=== PATIENT | male | born 1985 | race Caucasian/White ===

== ENCOUNTER 2018-05-13 11:01 | Emergency (ER) | payer MEDICAID ==
--- NOTE | 2018-05-13 11:17 | EDM.PDOC ---
ED HPI GENERAL MEDICAL PROBLEM - General Chief Complaint: Skin Complaint Stated Complaint: BUG BITE Time Seen by Provider: 05/13/18 11:14 Source of Information: Reports: Patient, Old Records, RN, RN Notes Reviewed History Limitations: Reports: No Limitations - History of Present Illness INITIAL COMMENTS - FREE TEXT/NARRATIVE: Pt presents with c/o infection to right arm. He states he believes he was bit on the right upper arm by an insect or flying bug of some type about 3 days ago. Initially it just looked like a little red/pink bug bite and itched. One day after the bite he noticed a reddish area of about "3 inches" diameter around the bite, which he assumed was just a local reaction not unlike what he has experienced in the past from bug bites. Later yesterday evening the right arm became tender, he felt feverish and then chilled, and the skin of the right arm became red and felt hot. Today the redness has spread from the proximal upper arm, to the wrist. He denies fever today. Denies N/V, headache, neck pain or stiffness, or joint pain/swelling. Onset: Gradual Duration: Day(s): (3-4), Constant, Getting Worse Location: Reports: Upper Extremity, Right Quality: Reports: Ache, Burning Severity: Severe Improves with: Reports: None Worsens with: Reports: None Associated Symptoms: Reports: No Other Symptoms Right Arm Pain Score (Numeric/FACES): 4 - Related Data Allergies Allergy/AdvReac Type Severity Reaction Status Date / Time peanut Allergy Anaphylactic Verified 12/30/15 09:38 Shock nuts Allergy Anaphylactic Uncoded 12/30/15 09:38 Shock Home Meds: Home Meds . [No Known Home Meds] 01/19/14 [History] Past Medical History - Past Health History Medical/Surgical History: Denies Medical/Surgical History HEENT History: Reports: Impaired Vision Other HEENT History: Throat swells from nuts. Cardiovascular History: Reports: None Respiratory History: Reports: None Gastrointestinal History: Reports: None Genitourinary History: Reports: STD Musculoskeletal History: Reports: Osteoarthritis Other Musculoskeletal History: arthritis of some kind Neurological History: Reports: Concussion, Head Trauma Psychiatric History: Reports: Addiction (recovering methamphetamine addict), Anxiety, Panic Attack Endocrine/Metabolic History: Reports: Obesity/BMI 30+ Hematologic History: Reports: None Immunologic History: Reports: None Oncologic (Cancer) History: Reports: None Dermatologic History: Reports: None - Infectious Disease History Infectious Disease History: Reports: Chicken Pox - Past Surgical History Head Surgeries/Procedures: Reports: None Social & Family History - Family History Family Medical History: Noncontributory - Caffeine Use Caffeine Use: Reports: Coffee, Energy Drinks, Soda - Recreational Drug Use Recreational Drug Use: Yes Drug Use in Last 12 Months: No Recreational Drug Type: Reports: Methamphetamine Recreational Drug Use Frequency: Not Used In Over 1 Year - Living Situation & Occupation Living situation: Reports: Single, Alone Occupation: Employed ED ROS GENERAL - Review of Systems Review Of Systems: ROS reveals no pertinent complaints other than HPI. ED EXAM, SKIN/RASH Exam: See Below Exam Limited By: No Limitations General Appearance: Alert, WD/WN, No Apparent Distress, Obese Throat/Mouth: Normal Voice, No Airway Compromise Head: Atraumatic, Normocephalic Neck: Normal Inspection Respiratory/Chest: No Respiratory Distress Cardiovascular: Regular Rate, Rhythm Back Exam: Normal Inspection Extremities: Normal Range of Motion, Normal Capillary Refill, Arm Pain (Rt mid lateral upper arm with 1.5cm excoriated and weeping area where pt states he was bit by insect), Increased Warmth (Rt arm), Redness (erythema w/tenderness and increased warmth at Rt ant/lat/medial upper arm, & dorsal forearm to the wrist) . No: Joint Swelling Neurological: Alert, Oriented, No Motor/Sensory Deficits Psychiatric: Normal Mood Course - Vital Signs Last Recorded V/S: Last Vital Signs Temp 37.2 C 05/13/18 11:09 Pulse 96 05/13/18 11:09 Resp 20 05/13/18 11:09 BP 147/94 H 05/13/18 11:09 Pulse Ox 98 05/13/18 11:09 - Orders/Labs/Meds Orders: Active Orders 24 hr Category Date Time Status Peripheral IV Care [RC] . DIRECTED Care 05/13/18 11:26 Ordered CBC WITH AUTO DIFF [HEME] Stat Lab 05/13/18 11:25 Ordered COMPREHENSIVE METABOLIC PN,CMP [CHEM] Stat Lab 05/13/18 11:25 Ordered CRP [C-REACTIVE PROTEIN] [CHEM] Stat Lab 05/13/18 11:25 Ordered CULTURE BLOOD [BC] Stat Lab 05/13/18 11:26 Ordered CULTURE BLOOD [BC] Stat Lab 05/13/18 11:26 Ordered LACTIC ACID [CHEM] Stat Lab 05/13/18 11:25 Ordered Sodium Chloride 0.9% [Saline Flush] Med 05/13/18 11:25 Ordered 10 ml FLUSH ASDIRECTED PRN Vancomycin Med 05/13/18 11:30 Ordered 1,734.99 mg IV Q12H diphenhydrAMINE [Benadryl] Med 05/13/18 11:26 Once 25 mg IVPUSH ONETIME ONE Blood Culture x2 Reflex Set [OM.PC] Stat Oth 05/13/18 11:25 Ordered Peripheral IV Insertion Adult [OM.PC] Stat Oth 05/13/18 11:25 Ordered Medication Orders Diphenhydramine HCl (Benadryl) 25 mg IVPUSH ONETIME ONE Stop: 05/13/18 11:27 Sodium Chloride (Saline Flush) 10 ml FLUSH ASDIRECTED PRN PRN Reason: Keep Vein Open Vancomycin HCl (Vancomycin) 1,734.99 mg 15 mg/kg (1734.99 mg) IV Q12H [facility] Meds: Medications Generic Name Dose Route Start Last Admin Trade Name Freq PRN Reason Stop Dose Admin Diphenhydramine HCl 25 mg 05/13/18 11:26 Benadryl IVPUSH 05/13/18 11:27 ONETIME ONE Sodium Chloride 10 ml 05/13/18 11:25 Saline Flush FLUSH ASDIRECTED PRN Keep Vein Open Vancomycin HCl 1,734.99 mg 05/13/18 11:30 Vancomycin 15 mg/kg (1734.99 mg) IV Q12H [facility] Departure - Departure Time of Disposition: 13:45 Disposition: Home, Self-Care 01 Condition: Fair Clinical Impression: Cellulitis of right upper extremity Infected insect bite of right arm Qualifiers: Encounter type: initial encounter Qualified Code(s): S40.861A - Insect bite ( nonvenomous) of right upper arm, initial encounter; L08.9 - Local infection of the skin and subcutaneous tissue, unspecified; W57.XXXA - Bitten or stung by nonvenomous insect and other nonvenomous arthropods, initial encounter - Discharge Information Instructions: Cellulitis, Adult, [id number], Insect Bite, Adult, [id number] Forms: ED Department Discharge Additional Instructions: Rx: Cephalexin 500mg Rx: Doxycycline 100mg Rx: Bactroban Ointment 2% Follow up in clinic in 2 to 3 days for recheck. Return to ER if worse at any time. - My Orders Last 24 Hours: My Active Orders 05/13/18 11:25 CBC WITH AUTO DIFF [HEME] Stat COMPREHENSIVE METABOLIC PN,CMP [CHEM] Stat CRP [C-REACTIVE PROTEIN] [CHEM] Stat LACTIC ACID [CHEM] Stat Sodium Chloride 0.9% [Saline Flush] 10 ml FLUSH ASDIRECTED PRN Blood Culture x2 Reflex Set [OM.PC] Stat Peripheral IV Insertion Adult [OM.PC] Stat 05/13/18 11:26 Peripheral IV Care [RC] . DIRECTED CULTURE BLOOD [BC] Stat CULTURE BLOOD [BC] Stat diphenhydrAMINE [Benadryl] 25 mg IVPUSH ONETIME ONE 05/13/18 11:30 Vancomycin 1,734.99 mg IV Q12H - Assessment/Plan Last 24 Hours: My Active Orders 05/13/18 11:25 CBC WITH AUTO DIFF [HEME] Stat COMPREHENSIVE METABOLIC PN,CMP [CHEM] Stat CRP [C-REACTIVE PROTEIN] [CHEM] Stat LACTIC ACID [CHEM] Stat Sodium Chloride 0.9% [Saline Flush] 10 ml FLUSH ASDIRECTED PRN Blood Culture x2 Reflex Set [OM.PC] Stat Peripheral IV Insertion Adult [OM.PC] Stat 05/13/18 11:26 Peripheral IV Care [RC] . DIRECTED CULTURE BLOOD [BC] Stat CULTURE BLOOD [BC] Stat diphenhydrAMINE [Benadryl] 25 mg IVPUSH ONETIME ONE 05/13/18 11:30 Vancomycin 1,734.99 mg IV Q12H
[2018-05-13] MEDS ORDERED: Sodium Chloride 0.9% 10 ML Syringe FLUSH PRN (11:25)
[2018-05-13] MEDS ORDERED: diphenhydrAMINE 50 MG/ML SDV IVPUSH ONE (11:26)
[2018-05-13] MEDS ORDERED: Vancomycin 500 MG SDV IV SCH (11:30)
[2018-05-13 11:58] LABS: CHLORIDE,CL 100 mmol/L (101-111); SODIUM,NA 137 mmol/L (135-145)
[2018-05-13] MEDS ORDERED: Vancomycin 1.75 GM in Sodium Chloride 0.9% 500 ML IV ONE (12:00)
[2018-05-13 14:14] VITALS: BP 143/83
== END 2018-05-13 14:09 | disposition home or self-care (01) ==
LOC: DL.ED 11:01
DX: S40.861A Insect bite (nonvenomous) of right upper arm, initial encounter (principal); L03.113 Cellulitis of right upper limb; Z91.010 Allergy to peanuts; Z91.018 Allergy to other foods; W57.XXXA Bitten or stung by nonvenomous insect and other nonvenomous arthropods, initial encounter
CPT/HCPCS: 36415; 80053; 83605; 85025; 86140; 87040; 96365; 96366; 96375; 99283; J1200; J3370; J7040; J7050

== ENCOUNTER 2018-06-18 13:34 | Emergency (ER) | payer SELFPAY ==
[2018-06-18 14:09] VITALS: BP 163/113
--- NOTE | 2018-06-18 15:24 | CR ---
Clinical history: 33-year-old male with back pain. [place] a "pop" while lifting 5 days ago. Interpretation: Subtle relative decreased height anterior vertebral bodies with associated tiny [place]mira nal arthritic spurs T12, L1 and L2. No sign of paraspinal soft tissue mass, acute lumbar fracture or spondylolisthesis. Subtle relative narrowing of the lowest free L5-S1 disc space suggesting possibility disc herniation. Clinical radiculopathy? Symmetric spacing normal-appearing SI and hip joints.
--- NOTE | 2018-06-18 15:26 | CR ---
Clinical history: Back pain 33-year-old male initiated 5 days ago while lifting. "Possible L5-S1 disc disease". Interpretation: AP pelvis/hips and frog lateral views right hip confirm the presence of os acetabulum on the right. Large abdominal soft tissue pannus. Symmetric spacing normal-appearing SI and hip joints. No sign of pathologic skeletal lesion, acute pelvic or either hip fracture/dislocation. No foreign bodies.
[2018-06-18] MEDS ORDERED: Ketorolac 30 MG/ML SDV IM ONE (15:34)
--- NOTE | 2018-06-18 15:42 | EDM.PDOC ---
Scribed by Seema Moran 06/18/18 1542 for Jack Tyson PA ED HPI GENERAL MEDICAL PROBLEM - General Chief Complaint: Lower Extremity Injury/Pain Stated Complaint: FELT HIP POP, 5 DAYS PRIOR Time Seen by Provider: 06/18/18 14:15 Source of Information: Reports: Patient, RN, RN Notes Reviewed History Limitations: Reports: No Limitations - History of Present Illness INITIAL COMMENTS - FREE TEXT/NARRATIVE: Patient presents to ER stating that 5 days ago he moved a hutch. He had right and low back pain. He took muscle relaxers. Two years ago he had low back and hip pain. He has been relaxing since injury. Onset Date: 06/14/18 Duration: Getting Worse Location: Reports: Lower Extremity, Right Quality: Reports: Ache Severity: Moderate Improves with: Reports: None Worsens with: Reports: None Associated Symptoms: Reports: No Other Symptoms Treatments LOAN ORIGINATOR: Reports: Other (see below) Other Treatments LOAN ORIGINATOR: muscle relaxer Right Hip Pain Score (Numeric/FACES): 6 - Related Data Allergies Allergy/AdvReac Type Severity Reaction Status Date / Time peanut Allergy Anaphylactic Verified 12/30/15 09:38 Shock nuts Allergy Anaphylactic Uncoded 12/30/15 09:38 Shock Home Meds: Home Meds . [No Known Home Meds] 01/19/14 [History] Past Medical History - Past Health History Medical/Surgical History: Denies Medical/Surgical History HEENT History: Reports: Impaired Vision Other HEENT History: Throat swells from nuts. Cardiovascular History: Reports: None Respiratory History: Reports: None Gastrointestinal History: Reports: None Genitourinary History: Reports: STD Musculoskeletal History: Reports: Osteoarthritis Other Musculoskeletal History: arthritis of some kind Neurological History: Reports: Concussion, Head Trauma Psychiatric History: Reports: Addiction, Anxiety, Panic Attack Endocrine/Metabolic History: Reports: Obesity/BMI 30+ Hematologic History: Reports: None Immunologic History: Reports: None Oncologic (Cancer) History: Reports: None Dermatologic History: Reports: None - Infectious Disease History Infectious Disease History: Reports: Chicken Pox - Past Surgical History Head Surgeries/Procedures: Reports: None Social & Family History - Family History Family Medical History: Noncontributory - Tobacco Use Smoking Status *Q: Current Every Day Smoker Years of Tobacco use: 20 Packs/Tins Daily: 1 - Caffeine Use Caffeine Use: Reports: Coffee, Energy Drinks, Soda - Recreational Drug Use Recreational Drug Use: Yes Recreational Drug Type: Reports: Marijuana/Hashish Recreational Drug Use Frequency: Daily - Living Situation & Occupation Living situation: Reports: Single, Alone Occupation: Employed Review of Systems - Review of Systems Review Of Systems: ROS reveals no pertinent complaints other than HPI. ED EXAM, GENERAL - Physical Exam Exam: See Below Exam Limited By: No Limitations General Appearance: Alert, WD/WN, No Apparent Distress Eye Exam: Bilateral Eye: EOMI, Normal Inspection, PERRL Ears: Normal External Exam, Normal Canal, Hearing Grossly Normal, Normal TMs Nose: Normal Inspection, Normal Mucosa, No Blood Throat/Mouth: Normal Inspection, Normal Lips, Normal Teeth, Normal Gums, Normal Oropharynx, Normal Voice, No Airway Compromise Head: Atraumatic, Normocephalic Neck: Normal Inspection, Supple, Non-Tender, Full Range of Motion Respiratory/Chest: No Respiratory Distress, Lungs Clear, Normal Breath Sounds, No Accessory Muscle Use, Chest Non-Tender Cardiovascular: Normal Peripheral Pulses, Regular Rate, Rhythm, No Edema, No Gallop, No JVD, No Murmur, No Rub GI/Abdominal: Other (obese) (Male) Exam: Deferred Rectal (Males) Exam: Deferred Back Exam: Other (lower back pain. ) Extremities: Other (right hip pain) Neurological: Alert, Oriented, CN II-XII Intact, Normal Cognition, Normal Gait, Normal Reflexes, No Motor/Sensory Deficits Psychiatric: Normal Affect, Normal Mood Skin Exam: Warm, Dry, Intact, Normal Color, No Rash Course - Vital Signs Last Recorded V/S: Last Vital Signs Temp 36.7 C 06/18/18 14:08 Pulse 96 06/18/18 14:08 Resp 24 H 06/18/18 14:08 BP 163/113 H 06/18/18 14:08 Pulse Ox 96 06/18/18 14:08 - Orders/Labs/Meds Meds: Medications Discontinued Medications Generic Name Dose Route Start Last Admin Trade Name Freq PRN Reason Stop Dose Admin Ketorolac Tromethamine 60 mg 06/18/18 15:34 Toradol IM 06/18/18 15:35 ONETIME ONE Departure - Departure Time of Disposition: 15:36 Disposition: Home, Self-Care 01 Condition: Fair Clinical Impression: Lower back pain Qualifiers: Chronicity: unspecified Back pain laterality: right Sciatica presence: with sciatica Sciatica laterality: sciatica of right side Qualified Code(s): M54.41 - Lumbago with sciatica, right side Low back strain Qualifiers: Encounter type: initial encounter Qualified Code(s): S39.012A - Strain of muscle, fascia and tendon of lower back, initial encounter - Discharge Information *PRESCRIPTION DRUG MONITORING PROGRAM REVIEWED*: Not Applicable *COPY OF PRESCRIPTION DRUG MONITORING REPORT IN PATIENT DEEPTI: Not Applicable Instructions: Muscle Strain, [id number], Low Back Strain Forms: ED Department Discharge Care Plan Goals: The patient was advised of the examination and x-ray results during the visit. The patient was given an injection of Toradol (60 mg) while in the ED. The patient was discharged with a script for Toradol (10 mg) #20 1 by mouth every 6 hours and Flexeril (10 mg) #20 to take 1 by mouth at bedtime as needed. If the patient has any additional symptoms or concerns, the patient should follow-up with his primary care facility or return to the emergency department. I have read and agree with the documentation that has been completed regarding this visit. By signing this record, I attest that the documentation was completed in my physical presence and is an accurate record of the encounter.
== END 2018-06-18 15:47 | disposition home or self-care (01) ==
LOC: DL.ED 13:34
DX: S39.012A Strain of muscle, fascia and tendon of lower back, initial encounter (principal); M54.41 Lumbago with sciatica, right side; F17.210 Nicotine dependence, cigarettes, uncomplicated; Z91.018 Allergy to other foods; Z91.010 Allergy to peanuts; X50.0XXA Overexertion from strenuous movement or load, initial encounter
CPT/HCPCS: 72100; 73501; 96372; 99283; J1885

== ENCOUNTER 2019-01-22 09:15 | Emergency (ER) | payer SELFPAY ==
[2019-01-22 09:24] VITALS: BP 163/91
--- NOTE | 2019-01-22 09:26 | EDM.PDOC ---
ED HPI GENERAL MEDICAL PROBLEM - General Chief Complaint: Allergic Reaction Stated Complaint: ALLERGIC REACTION TO PEANUTS Time Seen by Provider: 01/22/19 09:26 Source of Information: Reports: Patient, RN, RN Notes Reviewed History Limitations: Reports: No Limitations - History of Present Illness INITIAL COMMENTS - FREE TEXT/NARRATIVE: Pt to ER with c/o allergic reaction to peanuts. He states he has known for a long time that he is allergic to all nuts. Today he was at work and ate half of a donut before he realized there was a peanut in it. He states he is itchy and feels is tongue swelling minimally and some tightness in the throat. Denies any other allergies. Onset: Today, Sudden - Related Data Allergies Allergy/AdvReac Type Severity Reaction Status Date / Time peanut Allergy Anaphylactic Verified 01/22/19 09:39 Shock nuts Allergy Anaphylactic Uncoded 01/22/19 09:39 Shock Home Meds: Home Meds . [No Known Home Meds] 01/19/14 [History] Past Medical History - Past Health History Medical/Surgical History: Denies Medical/Surgical History HEENT History: Reports: Impaired Vision Other HEENT History: Throat swells from nuts. Cardiovascular History: Reports: None Respiratory History: Reports: None Gastrointestinal History: Reports: None Genitourinary History: Reports: STD Musculoskeletal History: Reports: Osteoarthritis Other Musculoskeletal History: arthritis of some kind Neurological History: Reports: Concussion, Head Trauma Psychiatric History: Reports: Addiction, Anxiety, Panic Attack Endocrine/Metabolic History: Reports: Obesity/BMI 30+ Hematologic History: Reports: None Immunologic History: Reports: None Oncologic (Cancer) History: Reports: None Dermatologic History: Reports: None - Infectious Disease History Infectious Disease History: Reports: Chicken Pox - Past Surgical History Head Surgeries/Procedures: Reports: None Social & Family History - Family History Family Medical History: Noncontributory - Caffeine Use Caffeine Use: Reports: Coffee, Energy Drinks, Soda - Living Situation & Occupation Living situation: Reports: Single, Alone Occupation: Employed ED ROS ALLERGIC REACTION - Review of Systems Review Of Systems: ROS reveals no pertinent complaints other than HPI. ED EXAM GENERAL NO PERIP PULSE - Physical Exam Exam: See Below Exam Limited By: No Limitations General Appearance: Alert, WD/WN, No Apparent Distress, Anxious Eye Exam: Bilateral Eye: EOMI, Normal Inspection Ears: Normal External Exam, Hearing Grossly Normal Nose: Normal Inspection Course - Vital Signs Last Recorded V/S: Last Vital Signs Temp 97.0 F 01/22/19 09:20 Pulse 87 01/22/19 09:20 Resp 18 01/22/19 09:20 BP 163/91 H 01/22/19 09:20 Pulse Ox 98 01/22/19 09:20 - Orders/Labs/Meds Orders: Active Orders 24 hr Category Date Time Status Peripheral IV Care [RC] . DIRECTED Care 01/22/19 09:38 Active Sodium Chloride 0.9% [Saline Flush] Med 01/22/19 09:38 Active 10 ml FLUSH ASDIRECTED PRN Peripheral IV Insertion Adult [OM.PC] Stat Oth 01/22/19 09:37 Ordered Medication Orders Sodium Chloride (Saline Flush) 10 ml FLUSH ASDIRECTED PRN PRN Reason: Keep Vein Open Last Admin: 01/22/19 09:57 Dose: 10 ml Labs: Laboratory Tests 01/22/19 01/22/19 Range/Units 09:37 09:37 WBC 9.2 (5.0-10.0) 10^3/uL RBC 5.45 (4.6-6.2) 10^6/uL Hgb 16.1 (14.0-18.0) g/dL Hct 46.6 (40.0-54.0) % MCV 85.5 (80-100) fL MCH 29.5 (27.0-34.0) pg MCHC 34.5 (33.0-35.0) g/dL Plt Count 187 (150-450) 10^3/uL Neut % (Auto) 56.9 (42.2-75.2) % Lymph % (Auto) 33.9 (20.5-50.1) % [place] % (Auto) 6.6 (2-8) % Eos % (Auto) 2.3 (1.0-3.0) % Baso % (Auto) 0.3 (0.0-1.0) % Sodium 138 (135-145) mmol/L Potassium 3.7 (3.6-5.0) mmol/L Chloride 104 (101-111) mmol/L Carbon Dioxide 24.0 (21.0-31.0) mmol/L Anion Gap 13.7 BUN 15 (7-18) mg/dL Creatinine 0.8 (0.6-1.3) mg/dL Est Cr Clr Drug Dosing 116.38 mL/min Estimated GFR (MDRD) > 60 BUN/Creatinine Ratio 18.75 Glucose 112 H (74-105) mg/dL Calcium 8.6 (8.4-10.2) mg/dl Total Bilirubin 0.8 (0.2-1.0) mg/dL AST 30 (10-42) IU/L ALT 59 (10-60) IU/L Alkaline Phosphatase 75 (42-121) IU/L Total Protein 6.9 (6.7-8.2) g/dl Albumin 4.0 (3.2-5.5) g/dl Globulin 2.9 Albumin/Globulin Ratio 1.38 Meds: Medications Generic Name Dose Route Start Last Admin Trade Name Freq PRN Reason Stop Dose Admin Sodium Chloride 10 ml 01/22/19 09:38 01/22/19 09:57 Saline Flush FLUSH 10 ml ASDIRECTED PRN Administration Keep Vein Open Discontinued Medications Generic Name Dose Route Start Last Admin Trade Name Freq PRN Reason Stop Dose Admin Diphenhydramine HCl 50 mg 01/22/19 09:38 01/22/19 09:54 Benadryl IVPUSH 01/22/19 09:39 50 mg ONETIME ONE Administration Famotidine 20 mg 01/22/19 09:38 01/22/19 09:56 Pepcid IVPUSH 01/22/19 09:39 20 mg ONETIME ONE Administration Sodium Chloride 1,000 mls @ 999 mls/hr 01/22/19 09:38 01/22/19 09:49 Normal Saline IV 01/22/19 10:38 999 mls/hr .BOLUS ONE Administration Methylprednisolone Sodium Succinate 125 mg 01/22/19 09:38 01/22/19 09:51 Solu-Medrol IVPUSH 01/22/19 09:39 125 mg ONETIME ONE Administration - Re-Assessments/Exams Free Text/Narrative Re-Assessment/Exam: 01/22/19 10:52 Patient states he is feeling better but drowsy from the Benadryl. He denies feeling of tongue swelling or tightness in the throat. Patient does live in town and understands that he will return to the ER immediately if he begins to have any further symptoms. Departure - Departure Time of Disposition: 10:53 Disposition: Home, Self-Care 01 Condition: Fair Clinical Impression: Allergic reaction to food Qualifiers: Encounter type: initial encounter Qualified Code(s): T78.1XXA - Other adverse food reactions, not elsewhere classified, initial encounter - Discharge Information *PRESCRIPTION DRUG MONITORING PROGRAM REVIEWED*: No *COPY OF PRESCRIPTION DRUG MONITORING REPORT IN PATIENT DEEPTI: No Instructions: Allergies, Adult, [id number], Food Allergy, Vykb-my-[id number], Anaphylactic Reaction, Adult Forms: ED Department Discharge Additional Instructions: Return to the ER with any further problems Follow up with your primary care facility - My Orders Last 24 Hours: My Active Orders 01/22/19 09:37 Peripheral IV Insertion Adult [OM.PC] Stat 01/22/19 09:38 Peripheral IV Care [RC] . DIRECTED Sodium Chloride 0.9% [Saline Flush] 10 ml FLUSH ASDIRECTED PRN - Assessment/Plan Last 24 Hours: My Active Orders 01/22/19 09:37 Peripheral IV Insertion Adult [OM.PC] Stat 01/22/19 09:38 Peripheral IV Care [RC] . DIRECTED Sodium Chloride 0.9% [Saline Flush] 10 ml FLUSH ASDIRECTED PRN
[2019-01-22] MEDS ORDERED: diphenhydrAMINE 50 MG/ML SDV IVPUSH ONE (09:38)
[2019-01-22] MEDS ORDERED: methylPREDNISolone Sodium Succinate 125 MG/2 ML SDV IVPUSH ONE (09:38)
[2019-01-22] MEDS ORDERED: Sodium Chloride 0.9% 1,000 ML IV ONE (09:38)
[2019-01-22] MEDS ORDERED: Sodium Chloride 0.9% 10 ML Syringe FLUSH PRN (09:38)
[2019-01-22] MEDS ORDERED: Famotidine 20 MG/2 ML SDV IVPUSH ONE (09:38)
[2019-01-22 10:18] LABS: ANION GAP 13.7; CHLORIDE,CL 104 mmol/L (101-111); SODIUM,NA 138 mmol/L (135-145)
== END 2019-01-22 10:59 | disposition home or self-care (01) ==
LOC: DL.ED 09:15
DX: T78.1XXA Other adverse food reactions, not elsewhere classified, initial encounter (principal); L29.9 Pruritus, unspecified; Z91.018 Allergy to other foods; Z91.010 Allergy to peanuts
CPT/HCPCS: 36415; 80053; 85025; 96365; 96375; 99283; J1200; J2930; J3490; J7030

== ENCOUNTER 2019-03-09 09:24 | Emergency (ER) | payer SELFPAY ==
[2019-03-09 09:33] VITALS: BP 149/88
--- NOTE | 2019-03-09 09:34 | EDM.PDOC ---
ED HPI GENERAL MEDICAL PROBLEM - General Chief Complaint: Back Pain or Injury Stated Complaint: BACK PAIN Time Seen by Provider: 03/09/19 09:33 Source of Information: Reports: Patient, Old Records, RN, RN Notes Reviewed History Limitations: Reports: No Limitations - History of Present Illness INITIAL COMMENTS - FREE TEXT/NARRATIVE: Pt presents to ER from home by POV with c/o low back pain and spasms sustained from a ground level fall/near fall 03/08/19. Pt denies radiating pain, loss of bowel or bladder control, or saddle area numbness. Pt states that he does not want pain medication, but his boss will not let him have the day off to rest his back without a doctor's note. Onset Date: 03/08/19 Duration: Constant Location: Reports: Back Quality: Reports: Ache Improves with: Reports: None Worsens with: Reports: None Associated Symptoms: Reports: No Other Symptoms Lower Back Pain Score (Numeric/FACES): 7 - Related Data Allergies Allergy/AdvReac Type Severity Reaction Status Date / Time peanut Allergy Anaphylactic Verified 01/22/19 09:39 Shock nuts Allergy Anaphylactic Uncoded 01/22/19 09:39 Shock Home Meds: Home Meds . [No Known Home Meds] 01/19/14 [History] Past Medical History - Past Health History Medical/Surgical History: Denies Medical/Surgical History HEENT History: Reports: Impaired Vision Other HEENT History: Throat swells from nuts. Cardiovascular History: Reports: None Respiratory History: Reports: None Gastrointestinal History: Reports: None Genitourinary History: Reports: STD Musculoskeletal History: Reports: Osteoarthritis Other Musculoskeletal History: arthritis of some kind Neurological History: Reports: Concussion, Head Trauma Psychiatric History: Reports: Addiction, Anxiety, Panic Attack Endocrine/Metabolic History: Reports: Obesity/BMI 30+ Hematologic History: Reports: None Immunologic History: Reports: None Oncologic (Cancer) History: Reports: None Dermatologic History: Reports: None - Infectious Disease History Infectious Disease History: Reports: Chicken Pox - Past Surgical History Head Surgeries/Procedures: Reports: None Musculoskeletal Surgical History: Reports: Arthroscopic Knee Social & Family History - Family History Family Medical History: Noncontributory - Tobacco Use Smoking Status *Q: Current Every Day Smoker Years of Tobacco use: 12 Packs/Tins Daily: 1 - Caffeine Use Caffeine Use: Reports: Coffee, Energy Drinks, Soda - Recreational Drug Use Recreational Drug Use: Yes Drug Use in Last 12 Months: Yes Recreational Drug Type: Reports: Marijuana/Hashish Recreational Drug Use Frequency: Daily - Living Situation & Occupation Living situation: Reports: Single, Alone Occupation: Employed ED ROS GENERAL - Review of Systems Review Of Systems: ROS reveals no pertinent complaints other than HPI. ED EXAM,LOWER BACK PAIN/INJURY - Physical Exam Exam: See Below Exam Limited By: No Limitations General Appearance: Alert, WD/WN, No Apparent Distress, Obese Respiratory/Chest: No Respiratory Distress, Lungs Clear, Normal Breath Sounds, No Accessory Muscle Use, Chest Non-Tender Cardiovascular: Regular Rate, Rhythm GI/Abdominal: Normal Bowel Sounds, Soft, Non-Tender, No Distention. No: Guarding, Rigid, Rebound Back Exam: Full Range of Motion, Muscle Spasm (lumbar), Paraspinal Tenderness ( lumbar). No: CVA Tenderness (L), CVA Tenderness (R), Vertebral Tenderness Extremities: Normal Inspection, Normal Range of Motion, Non-Tender, No Pedal Edema, Normal Capillary Refill Neurological: Alert, Normal Mood/Affect, Normal Dorsiflexion, CN II-XII Intact, Normal Plantar Flexion, Normal Gait, Normal Reflexes, No Motor/Sensory Deficits , Oriented x 3 Psychiatric: Normal Affect, Normal Mood Skin Exam: Warm, Dry, Intact, Normal Color, No Rash Course - Vital Signs Last Recorded V/S: Last Vital Signs Temp 36.5 C 03/09/19 09:27 Pulse 90 03/09/19 09:27 Resp 16 03/09/19 09:27 BP 149/88 H 03/09/19 09:33 Pulse Ox 97 03/09/19 09:27 Departure - Departure Time of Disposition: 09:38 Disposition: Home, Self-Care 01 Condition: Good Clinical Impression: Low back strain Qualifiers: Encounter type: initial encounter Qualified Code(s): S39.012A - Strain of muscle, fascia and tendon of lower back, initial encounter - Discharge Information *PRESCRIPTION DRUG MONITORING PROGRAM REVIEWED*: No *COPY OF PRESCRIPTION DRUG MONITORING REPORT IN PATIENT DEEPTI: No Instructions: Lumbosacral Strain Forms: ED Department Discharge Additional Instructions: Rest, gentle stretching. Use Tylenol or Ibuprofen as needed for pain. Follow directions on label for dosing and precautions. Follow up in clinic if not improving in 1 week.
== END 2019-03-09 09:43 | disposition home or self-care (01) ==
LOC: DL.ED 09:24
DX: S39.012A Strain of muscle, fascia and tendon of lower back, initial encounter (principal); F17.210 Nicotine dependence, cigarettes, uncomplicated; Z91.010 Allergy to peanuts; Z91.018 Allergy to other foods; W19.XXXA Unspecified fall, initial encounter
CPT/HCPCS: 99283

== ENCOUNTER 2019-08-02 17:00 | Emergency (ER) | payer SELFPAY ==
[2019-08-02] MEDS ORDERED: EPINEPHrine 1 MG/1 ML Amp SUBCUT ONE (17:05)
[2019-08-02] MEDS ORDERED: Sodium Chloride 0.9% 10 ML Syringe FLUSH PRN (17:05)
[2019-08-02] MEDS ORDERED: Sodium Chloride 0.9% 1,000 ML IV ONE (17:06)
[2019-08-02] MEDS ORDERED: methylPREDNISolone Sodium Succinate 125 MG/2 ML SDV IVPUSH ONE (17:06)
[2019-08-02] MEDS ORDERED: Famotidine 20 MG/2 ML SDV IVPUSH ONE (17:06)
[2019-08-02] MEDS ORDERED: diphenhydrAMINE 50 MG/ML SDV IVPUSH ONE (17:06)
[2019-08-02] MEDS ORDERED: Albuterol 0.083% 2.5 MG/3 ML Neb Soln NEB ONE ×2 (17:06→17:30)
[2019-08-02] MEDS ORDERED: Famotidine 20 MG/2 ML SDV ONE (17:07)
[2019-08-02] MEDS ORDERED: methylPREDNISolone Sodium Succinate 125 MG/2 ML SDV ONE (17:07)
[2019-08-02] MEDS ORDERED: Albuterol 0.083% 2.5 MG/3 ML Neb Soln ONE (17:24)
--- NOTE | 2019-08-02 18:28 | EDM.PDOC ---
Scribed by Seema Moran 08/02/19 [id number] for Orlando Macias MD ED HPI GENERAL MEDICAL PROBLEM - General Chief Complaint: Allergic Reaction Stated Complaint: ALLERGIC REACTION Time Seen by Provider: 08/02/19 17:04 Source of Information: Reports: Patient, RN, RN Notes Reviewed History Limitations: Reports: No Limitations - History of Present Illness INITIAL COMMENTS - FREE TEXT/NARRATIVE: Patient reports to ER with complaint of acute allergic reaction, generalized itching, swelling of throat and shortness of breath. Patient states that onset was 30 minutes after eating ice cream with chunks of fudge. Patient states that he has never a reaction to ice cream or fudge but has a peanut allergy. He suspects that there may have been peanut residue in the fudge. He is quite certain that the fudge did not contain any peanuts. He did not take any medications prior to arrival in the emergency room. Onset: Today Duration: Getting Worse Location: Reports: Generalized Severity: Severe Improves with: Reports: None Worsens with: Reports: None Associated Symptoms: Reports: No Other Symptoms - Related Data Allergies Allergy/AdvReac Type Severity Reaction Status Date / Time peanut Allergy Anaphylactic Verified 01/22/19 09:39 Shock nuts Allergy Anaphylactic Uncoded 01/22/19 09:39 Shock Home Meds: Home Meds . [No Known Home Meds] 01/19/14 [History] Past Medical History - Past Health History Medical/Surgical History: Denies Medical/Surgical History HEENT History: Reports: Impaired Vision Other HEENT History: Throat swells from nuts. Cardiovascular History: Reports: None Respiratory History: Reports: None Gastrointestinal History: Reports: None Genitourinary History: Reports: STD Musculoskeletal History: Reports: Osteoarthritis Other Musculoskeletal History: arthritis of some kind Neurological History: Reports: Concussion, Head Trauma Psychiatric History: Reports: Addiction, Anxiety, Panic Attack Endocrine/Metabolic History: Reports: Obesity/BMI 30+ Hematologic History: Reports: None Immunologic History: Reports: None Oncologic (Cancer) History: Reports: None Dermatologic History: Reports: None - Infectious Disease History Infectious Disease History: Reports: Chicken Pox - Past Surgical History Head Surgeries/Procedures: Reports: None Musculoskeletal Surgical History: Reports: Arthroscopic Knee Social & Family History - Family History Family Medical History: Noncontributory - Caffeine Use Caffeine Use: Reports: Coffee, Energy Drinks, Soda - Living Situation & Occupation Living situation: Reports: Single, Alone Occupation: Employed ED ROS ALLERGIC REACTION - Review of Systems Review Of Systems: ROS reveals no pertinent complaints other than HPI. ED EXAM GENERAL NO PERIP PULSE - Physical Exam Exam: See Below Exam Limited By: No Limitations General Appearance: Alert, Anxious, Obese Eye Exam: Bilateral Eye: EOMI, Normal Inspection, PERRL Ears: Normal External Exam Nose: Normal Inspection, Normal Mucosa, No Blood Throat/Mouth: Normal Inspection, Normal Lips, Normal Oropharynx, Normal Voice, No Airway Compromise Head: Atraumatic, Normocephalic Neck: Normal Inspection, Supple, Non-Tender, Full Range of Motion. No: Lymphadenopathy (L), Lymphadenopathy (R) Respiratory/Chest: No Respiratory Distress, Lungs Clear, No Accessory Muscle Use , Decreased Breath Sounds. No: Crackles, Rales, Rhonchi, Wheezing, Stridor Cardiovascular: Regular Rate, Rhythm GI/Abdominal: Normal Bowel Sounds, Soft, Non-Tender, Other (Benign obese abdomen ) Back Exam: Normal Inspection Extremities: Normal Inspection, Normal Range of Motion, Non-Tender, No Pedal Edema, Normal Capillary Refill. No: Joint Swelling Neurological: Alert, Oriented, No Motor/Sensory Deficits Psychiatric: Anxious Skin Exam: Warm, Dry, Intact, Other (Patchy generalized urticaria) Course - Vital Signs Last Recorded V/S: Last Vital Signs Temp Pulse 84 08/02/19 17:30 Resp BP Pulse Ox 96 08/02/19 17:30 - Orders/Labs/Meds Orders: Active Orders 24 hr Category Date Time Status Peripheral IV Care [RC] . DIRECTED Care 08/02/19 17:05 Active RT Aerosol Therapy [RC] ASDIRECTED Care 08/02/19 17:06 Active RT Aerosol Therapy [RC] ASDIRECTED Care 08/02/19 17:30 Active Sodium Chloride 0.9% [Saline Flush] Med 08/02/19 17:05 Active 10 ml FLUSH ASDIRECTED PRN Peripheral IV Insertion Adult [OM.PC] Stat Oth 08/02/19 17:05 Ordered Medication Orders Sodium Chloride (Saline Flush) 10 ml FLUSH ASDIRECTED PRN PRN Reason: Keep Vein Open Last Admin: 08/02/19 17:52 Dose: 10 ml Meds: Medications Generic Name Dose Route Start Last Admin Trade Name Freq PRN Reason Stop Dose Admin Sodium Chloride 10 ml 08/02/19 17:05 08/02/19 17:52 Saline Flush FLUSH 10 ml ASDIRECTED PRN Administration Keep Vein Open Discontinued Medications Generic Name Dose Route Start Last Admin Trade Name Thiago PRN Reason Stop Dose Admin Albuterol 2.5 mg 08/02/19 17:06 08/02/19 17:10 Proventil Neb Soln NEB 08/02/19 17:07 2.5 mg ONETIME ONE Administration Albuterol Confirm 08/02/19 17:24 08/02/19 17:33 Proventil Neb Soln Administered 08/02/19 17:25 2.5 mg Dose Administration 2.5 mg .ROUTE .STK-MED ONE Albuterol 2.5 mg 08/02/19 17:30 08/02/19 17:33 Proventil Neb Soln NEB 08/02/19 17:31 Not Given ONETIME ONE Diphenhydramine HCl 50 mg 08/02/19 17:06 08/02/19 17:09 Benadryl IVPUSH 08/02/19 17:07 50 mg ONETIME ONE Administration Epinephrine HCl 0.5 mg 08/02/19 17:05 08/02/19 17:09 Adrenalin SUBCUT 08/02/19 17:06 0.5 mg ONETIME ONE Administration Famotidine 20 mg 08/02/19 17:06 08/02/19 17:30 Pepcid IVPUSH 08/02/19 17:07 20 mg ONETIME ONE Administration Famotidine Confirm 08/02/19 17:07 08/02/19 17:52 Pepcid Administered 08/02/19 17:08 Not Given Dose 20 mg .ROUTE .STK-MED ONE Sodium Chloride 1,000 mls @ 999 mls/hr 08/02/19 17:06 08/02/19 17:52 Normal Saline IV 08/02/19 18:06 999 mls/hr .BOLUS ONE Administration Methylprednisolone Sodium Succinate 125 mg 08/02/19 17:06 08/02/19 17:30 Solu-Medrol IVPUSH 08/02/19 17:07 125 mg ONETIME ONE Administration Methylprednisolone Sodium Succinate Confirm 08/02/19 17:07 08/02/19 17:52 Solu-Medrol Administered 08/02/19 17:08 Not Given Dose 125 mg .ROUTE .STK-MED ONE - Re-Assessments/Exams Free Text/Narrative Re-Assessment/Exam: 08/02/19 18:25 Pt reports that he feels completely improved with no further itching, hives, or tightness in the throat. He has Benadryl at home and will take 25mg to 50mg every 6 hours until tomorrow. Departure - Departure Time of Disposition: 18:26 Disposition: Home, Self-Care 01 Condition: Good Clinical Impression: Allergic reaction to food Qualifiers: Encounter type: initial encounter Qualified Code(s): T78.1XXA - Other adverse food reactions, not elsewhere classified, initial encounter - Discharge Information *PRESCRIPTION DRUG MONITORING PROGRAM REVIEWED*: No *COPY OF PRESCRIPTION DRUG MONITORING REPORT IN PATIENT DEEPTI: No Instructions: Food Allergy, Anaphylactic Reaction, Adult Forms: ED Department Discharge Additional Instructions: Avoid nuts or foods processed with or on equipment used to process nuts. Take Benadryl 25mg to 50mg by mouth every 6 hours as needed for allergic reaction or itching. Return to ER if worse at any time. - My Orders Last 24 Hours: My Active Orders 08/02/19 17:05 Peripheral IV Care [RC] . DIRECTED Sodium Chloride 0.9% [Saline Flush] 10 ml FLUSH ASDIRECTED PRN Peripheral IV Insertion Adult [OM.PC] Stat 08/02/19 17:06 RT Aerosol Therapy [RC] ASDIRECTED 08/02/19 17:30 RT Aerosol Therapy [RC] ASDIRECTED - Assessment/Plan Last 24 Hours: My Active Orders 08/02/19 17:05 Peripheral IV Care [RC] . DIRECTED Sodium Chloride 0.9% [Saline Flush] 10 ml FLUSH ASDIRECTED PRN Peripheral IV Insertion Adult [OM.PC] Stat 08/02/19 17:06 RT Aerosol Therapy [RC] ASDIRECTED 08/02/19 17:30 RT Aerosol Therapy [RC] ASDIRECTED I have read and agree with the documentation that has been completed regarding this visit. By signing this record, I attest that the documentation was completed in my physical presence and is an accurate record of the encounter.
[2019-08-02 19:05] VITALS: BP 88/52
== END 2019-08-02 18:58 | disposition home or self-care (01) ==
LOC: DL.ED 17:00
DX: T78.1XXA Other adverse food reactions, not elsewhere classified, initial encounter (principal); L50.0 Allergic urticaria; Z91.010 Allergy to peanuts; Z91.018 Allergy to other foods
CPT/HCPCS: 94640; 96361; 96372; 96374; 96375; 99283; J0171; J1200; J2930; J3490; J7030; J7613-GY

== ENCOUNTER 2019-09-18 11:08 | Emergency (ER) | payer SELFPAY ==
[2019-09-18 11:14] VITALS: BP 143/95; PULSE 98
[2019-09-18] MEDS ORDERED: Ondansetron 4 MG/2 ML SDV IV ONE (11:41)
[2019-09-18] MEDS ORDERED: Ketorolac 30 MG/ML SDV IM ONE (11:41)
[2019-09-18] MEDS ORDERED: Ondansetron 4 MG Tab.DIS PO ONE (11:43)
--- NOTE | 2019-09-18 12:02 | EDM.PDOC ---
ED HPI GENERAL MEDICAL PROBLEM - General Chief Complaint: Gastrointestinal Problem Stated Complaint: SICK Time Seen by Provider: 09/18/19 11:40 Source of Information: Reports: Patient History Limitations: Reports: No Limitations - History of Present Illness INITIAL COMMENTS - FREE TEXT/NARRATIVE: patient comes emergency department today with complaints of sore throat fever nausea and vomiting. Since yesterday he has had a very painful sore throat that feels like razor blades. He had a fever of 101 during the night. He started having nausea this morning and vomited multiple times prior to coming to the emergency department. He has no wheezing shortness of breath cough or congestion. No chest pain. No production of cough. No abdominal pain. No body aches. No weakness dizziness lightheadedness. He's been voiding appropriately. Throat Pain Score (Numeric/FACES): 6 - Related Data Allergies Allergy/AdvReac Type Severity Reaction Status Date / Time peanut Allergy Anaphylactic Verified 09/18/19 11:14 Shock nuts Allergy Anaphylactic Uncoded 09/18/19 11:14 Shock Home Meds: Home Meds . [No Known Home Meds] 01/19/14 [History] Past Medical History - Past Health History Medical/Surgical History: Denies Medical/Surgical History HEENT History: Reports: Impaired Vision Other HEENT History: Throat swells from nuts. Cardiovascular History: Reports: None Respiratory History: Reports: None Gastrointestinal History: Reports: None Genitourinary History: Reports: STD Musculoskeletal History: Reports: Osteoarthritis Other Musculoskeletal History: arthritis of some kind Neurological History: Reports: Concussion, Head Trauma Psychiatric History: Reports: Addiction, Anxiety, Panic Attack Endocrine/Metabolic History: Reports: Obesity/BMI 30+ Hematologic History: Reports: None Immunologic History: Reports: None Oncologic (Cancer) History: Reports: None Dermatologic History: Reports: None - Infectious Disease History Infectious Disease History: Reports: Chicken Pox - Past Surgical History Head Surgeries/Procedures: Reports: None Musculoskeletal Surgical History: Reports: Arthroscopic Knee Social & Family History - Family History Family Medical History: Noncontributory - Tobacco Use Smoking Status *Q: Current Every Day Smoker Years of Tobacco use: 20 Packs/Tins Daily: 0.5 Second Hand Smoke Exposure: Yes - Caffeine Use Caffeine Use: Reports: Coffee, Energy Drinks, Soda - Recreational Drug Use Recreational Drug Use: Yes Drug Use in Last 12 Months: Yes Recreational Drug Type: Reports: Marijuana/Hashish, Methamphetamine Other Recreational Drug Type: no meth use of 15 months - Living Situation & Occupation Living situation: Reports: Single, Alone Occupation: Employed ED ROS ENT - Review of Systems Review Of Systems: ROS reveals no pertinent complaints other than HPI. ED EXAM, ENT - Physical Exam Exam: See Below Exam Limited By: No Limitations General Appearance: Alert, WD/WN, No Apparent Distress Eye Exam: Bilateral Eye: PERRL Ears: Normal External Exam, Normal Canal, Normal TMs Nose: Normal Inspection, Normal Mucousa Mouth/Throat: Normal Gums, Normal Lips, Tonsillar Erythema, Tonsillar Exudates, Tonsillar Swelling. No: Drooling, Uvular Deviation, Uvular Edema Head: Atraumatic, Normocephalic Neck: Non-Tender, Lymphadenopathy (L), Lymphadenopathy (R) Respiratory/Chest: No Respiratory Distress, Lungs Clear, Normal Breath Sounds, No Accessory Muscle Use, Chest Non-Tender Cardiovascular: Normal Peripheral Pulses, Regular Rate, Rhythm GI/Abdominal: Normal Bowel Sounds, Soft (Male) Exam: Deferred Rectal (Males) Exam: Deferred Back: Normal Inspection Extremities: Normal Inspection Neurological: Alert, Oriented, No Motor/Sensory Deficits Psychiatric: Normal Affect, Normal Mood Skin: Warm, Dry, Normal Color Course - Vital Signs Last Recorded V/S: Last Vital Signs Temp 36.1 C 09/18/19 11:11 Pulse 98 09/18/19 11:11 Resp 18 09/18/19 11:11 BP 143/95 H 09/18/19 11:11 Pulse Ox 96 09/18/19 11:11 - Orders/Labs/Meds Labs: Microbiology 09/18/19 11:16 Throat Group A Streptococcus Rapid Screen - Final Positive For Group A Strep Ag 09/18/19 11:16 Nasal, Left Influenza Type A Antigen Screen - Final NEGATIVE INFLUENZA A VIRUS AG REFERENCE RANGE: NEGATIVE 09/18/19 11:16 Nasal, Left Influenza Type B Antigen Screen - Final NEGATIVE INFLUENZA B VIRUS AG REFERENCE RANGE: NEGATIVE Meds: Medications Discontinued Medications Generic Name Dose Route Start Last Admin Trade Name Freq PRN Reason Stop Dose Admin Ketorolac Tromethamine 30 mg 09/18/19 11:41 09/18/19 11:51 Toradol IM 09/18/19 11:42 30 mg ONETIME ONE Administration Ondansetron HCl 4 mg 09/18/19 11:41 09/18/19 11:54 Zofran IV 09/18/19 11:42 Not Given ONETIME ONE Ondansetron HCl 4 mg 09/18/19 11:43 09/18/19 11:51 Zofran Odt PO 09/18/19 11:44 4 mg ONETIME ONE Administration Departure - Departure Time of Disposition: 11:57 Disposition: Home, Self-Care 01 Clinical Impression: Strep throat - Discharge Information Instructions: Strep Throat, [id number] Additional Instructions: Tylenol and or Ibuprofen as needed for pain. Push oral fluids as much as possible over the next few days. Amoxicillin, 1gram by mouth twice daily for 10 days. RX given to the patient. Zofran, 4mg ODT, 1 tablet every 6 hrs as needed for nausea. #9 Return to the ED if new or worsening symptoms. Follow up with PCP if new or worsening symptoms next 4-6 days. - Assessment/Plan Assessment:: Strep throat Nausea vomiting Plan: Tylenol and or Ibuprofen as needed for pain. Ice or heat to the sore areas. Return to the ED if new or worsening symptoms. Follow up with PCP in the next 4-6 days if not improving sooner if worse.
== END 2019-09-18 12:08 | disposition home or self-care (01) ==
LOC: DL.ED 11:08
DX: J02.0 Streptococcal pharyngitis (principal); F17.210 Nicotine dependence, cigarettes, uncomplicated; Z91.010 Allergy to peanuts; Z91.018 Allergy to other foods
CPT/HCPCS: 87430; 87804; 99283; A9270; J1885

== ENCOUNTER 2020-01-22 12:06 | Emergency (ER) | payer SELFPAY ==
[2020-01-22 12:31] VITALS: PULSE 94
--- NOTE | 2020-01-22 12:36 | EDM.PDOC ---
ED HPI GENERAL MEDICAL PROBLEM - General Chief Complaint: Lower Extremity Injury/Pain Stated Complaint: RIGHT FOOT IS SWOLLEN/CAN BARELY WALK Time Seen by Provider: 01/22/20 12:20 Source of Information: Reports: Patient History Limitations: Reports: No Limitations - History of Present Illness INITIAL COMMENTS - FREE TEXT/NARRATIVE: This 34 yo male patient reports to the ED with right foot and ankle pain over the past week. The patient reports he does not know what happened originally, but started to have increased pain about 1 week ago. The patient has noticed some increased swelling over the past week. The patient has been icing and elevating it. Today, the patient reports he had increased pain and difficulties walking this morning. Duration: Week(s):, Constant, Getting Worse Location: Reports: Lower Extremity, Right Quality: Reports: Ache, Dull Severity: Moderate Improves with: Reports: None Worsens with: Reports: None Context: Reports: Other Right Foot Pain Score (Numeric/FACES): 6 - Related Data Allergies Allergy/AdvReac Type Severity Reaction Status Date / Time peanut Allergy Anaphylactic Verified 01/22/20 12:26 Shock nuts Allergy Anaphylactic Uncoded 09/18/19 11:14 Shock Home Meds: Home Meds . [No Known Home Meds] 01/19/14 [History] Past Medical History - Past Health History Medical/Surgical History: Denies Medical/Surgical History HEENT History: Reports: Impaired Vision Other HEENT History: Throat swells from nuts. Cardiovascular History: Reports: None Respiratory History: Reports: None Gastrointestinal History: Reports: None Genitourinary History: Reports: STD Musculoskeletal History: Reports: Osteoarthritis Other Musculoskeletal History: arthritis of some kind Neurological History: Reports: Concussion, Head Trauma Psychiatric History: Reports: Addiction, Anxiety, Panic Attack Endocrine/Metabolic History: Reports: Obesity/BMI 30+ Hematologic History: Reports: None Immunologic History: Reports: None Oncologic (Cancer) History: Reports: None Dermatologic History: Reports: None - Infectious Disease History Infectious Disease History: Reports: Chicken Pox - Past Surgical History Head Surgeries/Procedures: Reports: None Musculoskeletal Surgical History: Reports: Arthroscopic Knee Social & Family History - Family History Family Medical History: Noncontributory - Caffeine Use Caffeine Use: Reports: Coffee, Energy Drinks, Soda - Living Situation & Occupation Living situation: Reports: Single, Alone Occupation: Employed Review of Systems - Review of Systems Review Of Systems: Comprehensive ROS is negative, except as noted in HPI. ED EXAM, GENERAL - Physical Exam Exam: See Below Exam Limited By: No Limitations General Appearance: Alert, WD/WN, Mild Distress Eye Exam: Bilateral Eye: EOMI, Normal Inspection, PERRL Ears: Normal External Exam, Normal Canal, Hearing Grossly Normal, Normal TMs Nose: Normal Inspection, Normal Mucosa, No Blood Throat/Mouth: Normal Inspection, Normal Lips, Normal Teeth, Normal Gums, Normal Oropharynx, Normal Voice, No Airway Compromise Head: Atraumatic, Normocephalic Neck: Normal Inspection, Supple, Non-Tender, Full Range of Motion Respiratory/Chest: No Respiratory Distress, Lungs Clear, Normal Breath Sounds, No Accessory Muscle Use, Chest Non-Tender Cardiovascular: Normal Peripheral Pulses, Regular Rate, Rhythm, No Edema, No Gallop, No JVD, No Murmur, No Rub GI/Abdominal: Normal Bowel Sounds, Soft, Non-Tender, No Organomegaly, No Distention, No Abnormal Bruit, No Mass, Other (obese) (Male) Exam: Deferred Rectal (Males) Exam: Deferred Back Exam: Normal Inspection, Full Range of Motion, NT Extremities: Other (right lateral foot and ankle tenderness ) Neurological: Alert, Oriented, CN II-XII Intact, Normal Cognition, Normal Gait, Normal Reflexes, No Motor/Sensory Deficits Psychiatric: Normal Affect, Normal Mood Skin Exam: Warm, Dry, Intact, Normal Color, No Rash Lymphatic: No Adenopathy Course - Vital Signs Last Recorded V/S: Last Vital Signs Temp 36.6 C 01/22/20 12:27 Pulse 94 01/22/20 12:27 Resp 16 01/22/20 12:27 BP Pulse Ox 98 01/22/20 12:27 Departure - Departure Time of Disposition: 14:55 Disposition: Home, Self-Care 01 Condition: Fair Clinical Impression: Right ankle sprain Qualifiers: Encounter type: initial encounter Involved ligament of ankle: unspecified ligament Qualified Code(s): S93.401A - Sprain of unspecified ligament of right ankle, initial encounter - Discharge Information *PRESCRIPTION DRUG MONITORING PROGRAM REVIEWED*: Not Applicable *COPY OF PRESCRIPTION DRUG MONITORING REPORT IN PATIENT DEEPTI: Not Applicable Instructions: Ankle Sprain, [id number] Forms: ED Department Discharge Care Plan Goals: The patient was advised of the examination and lab results during the visit. The patient was placed in a right ankle splint (manufactured) while in the ED. The patient was encouraged to attempt to rest and elevate his right lower extremity. If the patient has any additional symptoms or concerns, the patient should either return to the emergency department or visit his primary care facility. Sepsis Event Note - Evaluation Sepsis Screening Result: No Definite Risk - Focused Exam Vital Signs: Vital Signs Temp Pulse Resp Pulse Ox 01/22/20 12:27 36.6 C 94 16 98 Date Exam was Performed: 01/22/20 Time Exam was Performed: 14:51
--- NOTE | 2020-01-22 13:05 | CR ---
EXAMINATION: Ankle Min 3V Rt SEX: Male AGE: 34 years CLINICAL HISTORY: 34-year-old male complaining of right lateral foot and ankle pain. (Injured one week ago) INTERPRETATION: 1. Mild soft tissue swelling over the malleoli. 2. No sign of underlying fracture or disruption of ankle mortise joint symmetry. 3. Small heel spur at insertion Achilles tendon posteriorly on the os calcis. No foreign bodies. CONCLUSION: Mild sprain. No fractures.
--- NOTE | 2020-01-22 13:06 | CR ---
EXAMINATION: Foot Comp Min 3V Rt SEX: Male AGE: 34 years CLINICAL HISTORY: 34-year-old male lateral foot pain (injured one week ago). Interpretation (3 views right foot) Mild soft tissue swelling laterally. No sign of right foot fracture or dislocation. Tiny heel spur at insertion Achilles tendon posteriorly on the os calcis. No foreign bodies.
== END 2020-01-22 15:05 | disposition home or self-care (01) ==
LOC: DL.ED 12:06
DX: S93.401A Sprain of unspecified ligament of right ankle, initial encounter (principal); Z91.018 Allergy to other foods; Z91.010 Allergy to peanuts; X58.XXXA Exposure to other specified factors, initial encounter
CPT/HCPCS: 73610-RT; 73630-RT; 99283-25

== ENCOUNTER 2020-03-13 16:19 | Emergency (ER) | payer SELFPAY ==
[2020-03-13] MEDS ORDERED: EPINEPHrine 1 MG/1 ML Amp ONE (16:27)
[2020-03-13] MEDS ORDERED: methylPREDNISolone Sodium Succinate 125 MG/2 ML SDV ONE (16:27)
[2020-03-13] MEDS ORDERED: diphenhydrAMINE 50 MG/ML SDV ONE (16:27)
[2020-03-13] MEDS ORDERED: diphenhydrAMINE 50 MG/ML SDV IM ONE (16:27)
[2020-03-13] MEDS ORDERED: EPINEPHrine 1 MG/ML 30 ML MDV IM ONE (16:28)
[2020-03-13] MEDS ORDERED: methylPREDNISolone Sodium Succinate 125 MG/2 ML SDV IM ONE (16:28)
[2020-03-13 16:46] VITALS: BP 154/96; PULSE 94
--- NOTE | 2020-03-13 16:54 | EDM.PDOC ---
Scribed by Seema Moran 03/13/20 [id number] for Orlando Macias MD ED HPI GENERAL MEDICAL PROBLEM - General Chief Complaint: Allergic Reaction Stated Complaint: ALERGIC REACTION, TEMP 100.5* Time Seen by Provider: 03/13/20 16:28 Source of Information: Reports: Patient, RN, RN Notes Reviewed History Limitations: Reports: No Limitations - History of Present Illness INITIAL COMMENTS - FREE TEXT/NARRATIVE: Patient presents to ER by POV with complaint of an allergic reaction. He states he ate an ice cream sundae that had nuts in it and developed a reaction. Reaction consists of hives and itching. Denies any swelling of face, lips, tongue or throat. Denies any cough, wheezing or respiratory difficulties. Denies cough, chest pain, shortness of breath, sore throat, runny nose, recent travel, or any exposures to confirmed or suspected Covid-19 cases. Onset: Today Location: Reports: Generalized Severity: Moderate Improves with: Reports: None Worsens with: Reports: None Associated Symptoms: Reports: No Other Symptoms - Related Data Allergies Allergy/AdvReac Type Severity Reaction Status Date / Time peanut Allergy Anaphylactic Verified 03/13/20 16:46 Shock nuts Allergy Anaphylactic Uncoded 09/18/19 11:14 Shock Home Meds: Home Meds . [No Known Home Meds] 01/19/14 [History] Past Medical History - Past Health History Medical/Surgical History: Denies Medical/Surgical History HEENT History: Reports: Impaired Vision Other HEENT History: Throat swells from nuts. Cardiovascular History: Reports: None Respiratory History: Reports: None Gastrointestinal History: Reports: None Genitourinary History: Reports: STD Musculoskeletal History: Reports: Osteoarthritis Other Musculoskeletal History: arthritis of some kind Neurological History: Reports: Concussion, Head Trauma Psychiatric History: Reports: Addiction, Anxiety, Panic Attack Endocrine/Metabolic History: Reports: Obesity/BMI 30+ Hematologic History: Reports: None Immunologic History: Reports: None Oncologic (Cancer) History: Reports: None Dermatologic History: Reports: None - Infectious Disease History Infectious Disease History: Reports: Chicken Pox - Past Surgical History Head Surgeries/Procedures: Reports: None Musculoskeletal Surgical History: Reports: Arthroscopic Knee Social & Family History - Family History Family Medical History: Noncontributory - Caffeine Use Caffeine Use: Reports: Coffee, Energy Drinks, Soda - Living Situation & Occupation Living situation: Reports: Single, Alone Occupation: Employed ED ROS ALLERGIC REACTION - Review of Systems Review Of Systems: Comprehensive ROS is negative, except as noted in HPI. ED EXAM GENERAL NO PERIP PULSE - Physical Exam Exam: See Below Exam Limited By: No Limitations General Appearance: Alert, No Apparent Distress, Obese Eye Exam: Bilateral Eye: Normal Inspection Nose: Normal Inspection, Normal Mucosa, No Blood Throat/Mouth: Normal Inspection, Normal Lips, Normal Teeth, Normal Gums, Normal Oropharynx, Normal Voice, No Airway Compromise Head: Atraumatic, Normocephalic Neck: Normal Inspection, Supple, Non-Tender, Full Range of Motion Respiratory/Chest: No Respiratory Distress, Lungs Clear, Normal Breath Sounds, No Accessory Muscle Use, Chest Non-Tender Cardiovascular: Normal Peripheral Pulses, Regular Rate, Rhythm, No Edema GI/Abdominal: Normal Bowel Sounds, Soft, Non-Tender, Other (benign obese abdomen ) Back Exam: Normal Inspection Extremities: Normal Inspection, Normal Range of Motion, Non-Tender, No Pedal Edema Neurological: Alert, Oriented, CN II-XII Intact, Normal Cognition, Normal Gait, No Motor/Sensory Deficits Psychiatric: Normal Affect, Normal Mood Skin Exam: Warm, Dry, Intact, Rash (Urticarial patches to face, chest, abdomen, back, B/L arms, and thighs) Course - Vital Signs Last Recorded V/S: Last Vital Signs Temp 98.5 F 03/13/20 16:38 Pulse 94 03/13/20 16:38 Resp 18 03/13/20 16:38 BP 154/96 H 03/13/20 16:38 Pulse Ox 94 L 03/13/20 16:38 - Orders/Labs/Meds Meds: Medications Discontinued Medications Generic Name Dose Route Start Last Admin Trade Name Masoodq PRN Reason Stop Dose Admin Diphenhydramine HCl 50 mg 03/13/20 16:27 03/13/20 16:34 Benadryl IM 03/13/20 16:28 50 mg ONETIME ONE Administration Diphenhydramine HCl Confirm 03/13/20 16:27 03/13/20 16:34 Benadryl Administered 03/13/20 16:28 Not Given Dose 50 mg .ROUTE .STK-MED ONE Epinephrine HCl 0.5 mg 03/13/20 16:28 03/13/20 16:34 Adrenalin IM 03/13/20 16:29 Not Given NOW ONE Epinephrine HCl Confirm 03/13/20 16:27 03/13/20 16:33 Adrenalin Administered 03/13/20 16:28 0.5 mg Dose Administration 1 mg .ROUTE .STK-MED ONE Methylprednisolone Sodium Succinate 125 mg 03/13/20 16:28 03/13/20 16:33 Solu-Medrol IM 03/13/20 16:29 125 mg ONETIME ONE Administration Methylprednisolone Sodium Succinate Confirm 03/13/20 16:27 03/13/20 16:34 Solu-Medrol Administered 03/13/20 16:28 Not Given Dose 125 mg .ROUTE .STK-MED ONE - Re-Assessments/Exams Free Text/Narrative Re-Assessment/Exam: 03/13/20 16:54 Pt improved, symptoms resolved following tx in ER. Departure - Departure Time of Disposition: 16:54 Disposition: Home, Self-Care 01 Condition: Good Clinical Impression: Allergic urticaria due to ingested food - Discharge Information *PRESCRIPTION DRUG MONITORING PROGRAM REVIEWED*: Not Applicable *COPY OF PRESCRIPTION DRUG MONITORING REPORT IN PATIENT DEEPTI: Not Applicable Instructions: Hives, Food Choices for Peanut Allergy, Adult Forms: ED Department Discharge Additional Instructions: Rx: Prednisone 20mg Continue Benadryl 25mg to 50mg every six hours as needed for hives, itching, or swelling. Avoid nuts or products prepared on or near nuts. Return to ER if worse at any time. Sepsis Event Note - Focused Exam Vital Signs: Vital Signs Temp Pulse Resp BP Pulse Ox 03/13/20 16:38 98.5 F 94 18 154/96 H 94 L Date Exam was Performed: 03/13/20 Time Exam was Performed: 16:53 I have read and agree with the documentation that has been completed regarding this visit. By signing this record, I attest that the documentation was completed in my physical presence and is an accurate record of the encounter.
== END 2020-03-13 17:17 | disposition home or self-care (01) ==
LOC: DL.ED 16:19
DX: L50.0 Allergic urticaria (principal); E66.9 Obesity, unspecified; Z68.43 Body mass index [BMI] 50.0-59.9, adult; Z91.010 Allergy to peanuts; Z91.018 Allergy to other foods
CPT/HCPCS: 96372; 99283; J0171; J1200; J2930

== ENCOUNTER 2020-06-26 20:43 | Emergency (ER) | payer OTHER ==
[2020-06-26 21:00] VITALS: BP 157/99; PULSE 99
[2020-06-26] MEDS ORDERED: Lidocaine 1% with EPINEPHrine 1:100,000 20 ML MDV INJECT ONE (21:06)
[2020-06-26] MEDS ORDERED: Diphtheria,Pertussis(Acell),Tetanus Vaccine 0.5 ML SDV IM ONE (21:06)
--- NOTE | 2020-06-26 21:12 | EDM.PDOC ---
ED HPI GENERAL MEDICAL PROBLEM - General Chief Complaint: Laceration Stated Complaint: CUT ON POINTER FINGER Time Seen by Provider: 06/26/20 21:07 Source of Information: Reports: Patient History Limitations: Reports: No Limitations - History of Present Illness INITIAL COMMENTS - FREE TEXT/NARRATIVE: cut right index at work. Right Finger-Index Pain Score (Numeric/FACES): 3 - Related Data Allergies Allergy/AdvReac Type Severity Reaction Status Date / Time peanut Allergy Anaphylactic Verified 06/26/20 21:00 Shock nuts Allergy Anaphylactic Uncoded 06/26/20 21:00 Shock Home Meds: Home Meds . [No Known Home Meds] 01/19/14 [History] Past Medical History - Past Health History Medical/Surgical History: Denies Medical/Surgical History HEENT History: Reports: Impaired Vision Other HEENT History: Throat swells from nuts. Cardiovascular History: Reports: None Respiratory History: Reports: None Gastrointestinal History: Reports: None Genitourinary History: Reports: STD Musculoskeletal History: Reports: Osteoarthritis Other Musculoskeletal History: arthritis of some kind Neurological History: Reports: Concussion, Head Trauma Psychiatric History: Reports: Addiction, Anxiety, Panic Attack Endocrine/Metabolic History: Reports: Obesity/BMI 30+ Hematologic History: Reports: None Immunologic History: Reports: None Oncologic (Cancer) History: Reports: None Dermatologic History: Reports: None - Infectious Disease History Infectious Disease History: Reports: Chicken Pox - Past Surgical History Head Surgeries/Procedures: Reports: None Musculoskeletal Surgical History: Reports: Arthroscopic Knee Social & Family History - Family History Family Medical History: Noncontributory - Tobacco Use Smoking Status *Q: Current Every Day Smoker Years of Tobacco use: 20 Packs/Tins Daily: 0.5 - Caffeine Use Caffeine Use: Reports: Coffee - Recreational Drug Use Recreational Drug Use: Yes Drug Use in Last 12 Months: Yes Recreational Drug Type: Reports: Marijuana/Hashish - Living Situation & Occupation Living situation: Reports: Single, Alone Occupation: Employed ED ROS GENERAL - Review of Systems Review Of Systems: Comprehensive ROS is negative, except as noted in HPI. ED EXAM, SKIN/RASH Exam: See Below Exam Limited By: No Limitations General Appearance: Alert, WD/WN, No Apparent Distress Ears: Hearing Grossly Normal Throat/Mouth: Normal Voice, No Airway Compromise Head: Atraumatic Neck: Non-Tender, Full Range of Motion Respiratory/Chest: No Respiratory Distress Cardiovascular: Regular Rate, Rhythm GI/Abdominal: Soft, Non-Tender Extremities: Other (right index tip 1/4" avulsed tissue, NV wnl) Neurological: Alert, Oriented, Normal Cognition, Normal Gait, No Motor/Sensory Deficits Psychiatric: Normal Affect, Normal Mood Skin: Warm, Dry, Normal Color Location, Skin: Upper Extremity, Right ED SKIN PROCEDURES - Laceration/Wound Repair Right Digit - 2nd (Index) Appearance: Superficial, Clean, Other (1/4" filet) Distal NVT: Neuro & Vascular Intact, No Tendon Injury Anesthetic Type: Local Local Anesthesia - Lidocaine (Xylocaine): 1% with EPI Local Anesthetic Volume: Other (0.5) Skin Prep: Chlorhexidine (Hibiciens) Exploration/Debridement/Repair: Wound Explored, In a Bloodless Field, No Foreign Material Found Closed with: Other (haemostatic dressing) Lac/Wound length In cm: 0.5 (right index tip) Sterile Dressing Applied: Provider Tetanus Status Addressed: Yes Complications: No Course - Vital Signs Last Recorded V/S: Last Vital Signs Temp 37.0 C 06/26/20 20:54 Pulse 99 06/26/20 20:54 Resp 19 06/26/20 20:54 BP 157/99 H 06/26/20 20:54 Pulse Ox 97 06/26/20 20:54 - Orders/Labs/Meds Orders: Active Orders 24 hr Category Date Time Status Vaccines to be Administered [RC] PER UNIT ROUTINE Care 06/26/20 21:06 Active Meds: Medications Discontinued Medications Generic Name Dose Route Start Last Admin Trade Name Freq PRN Reason Stop Dose Admin Diphtheria/Tetanus/Acell Pertussis 0.5 ml 06/26/20 21:06 06/26/20 21:14 Adacel IM 06/26/20 21:07 0.5 ml .ONCE ONE Administration Lidocaine/Epinephrine 20 ml 06/26/20 21:06 06/26/20 21:14 Xylocaine 1% With Epinephrine 1:100,000 INJECT 06/26/20 21:07 20 ml ONETIME ONE Administration Departure - Departure Time of Disposition: 21:24 Disposition: Home, Self-Care 01 Condition: Good Clinical Impression: Avulsion of soft tissue, Soft tissue injury of finger of right hand - Discharge Information Forms: ED Department Discharge Additional Instructions: 1) keep wound clean dry covered 48 hours 2) removed bandage in 48 hours and use sterile dressing. Sepsis Event Note (ED) - Evaluation Sepsis Screening Result: No Definite Risk - Focused Exam Vital Signs: Vital Signs Temp Pulse Resp BP Pulse Ox 06/26/20 20:54 37.0 C 99 19 157/99 H 97 - My Orders Last 24 Hours: My Active Orders 06/26/20 21:06 Vaccines to be Administered [RC] PER UNIT ROUTINE - Assessment/Plan Last 24 Hours: My Active Orders 06/26/20 21:06 Vaccines to be Administered [RC] PER UNIT ROUTINE
== END 2020-06-26 21:30 | disposition home or self-care (01) ==
LOC: DL.ED 20:43
DX: S61.300A Unspecified open wound of right index finger with damage to nail, initial encounter (principal); F41.0 Panic disorder [episodic paroxysmal anxiety]; E66.9 Obesity, unspecified; F17.210 Nicotine dependence, cigarettes, uncomplicated; Z23 Encounter for immunization; Z91.018 Allergy to other foods; Z91.010 Allergy to peanuts; Z68.43 Body mass index [BMI] 50.0-59.9, adult; W45.8XXA Other foreign body or object entering through skin, initial encounter; Y92.89 Other specified places as the place of occurrence of the external cause; Y99.0 Civilian activity done for income or pay
CPT/HCPCS: 12001; 90471; 90715; 99282; 99282-25

== ENCOUNTER 2021-10-12 09:47 | Emergency (ER) | payer SELFPAY ==
[2021-10-12] MEDS ORDERED: Gentamicin 0.3% Ophth Soln 5 ML Bottle EYELF ONE (10:35)
--- NOTE | 2021-10-12 10:37 | EDM.PDOC ---
ED HPI GENERAL MEDICAL PROBLEM - General Chief Complaint: Eye Problems Stated Complaint: [id number] PINK EYE Time Seen by Provider: 10/12/21 10:00 Source of Information: Reports: Patient, RN, RN Notes Reviewed History Limitations: Reports: No Limitations - History of Present Illness INITIAL COMMENTS - FREE TEXT/NARRATIVE: Pt presents to ER with c/o irritation to left eye that began yesterday, and woke this morning with yellow matting. Denies eye pain, fever, cough, or any other symptoms. Pt's daughter also has conjunctivitis currently. Onset: Gradual Onset Date: 10/11/21 Duration: Constant, Getting Worse Location: Reports: Other (left eye) Quality: Reports: Other (Denies pain) Severity: Mild Improves with: Reports: None Worsens with: Reports: None Associated Symptoms: Reports: No Other Symptoms - Related Data Allergies Allergy/AdvReac Type Severity Reaction Status Date / Time peanut Allergy Anaphylactic Verified 06/26/20 21:00 Shock nuts Allergy Anaphylactic Uncoded 06/26/20 21:00 Shock Home Meds: Home Meds . [No Known Home Meds] 01/19/14 [History] Past Medical History - Past Health History Medical/Surgical History: Denies Medical/Surgical History HEENT History: Reports: Impaired Vision Other HEENT History: Throat swells from nuts. Cardiovascular History: Reports: None Respiratory History: Reports: None Gastrointestinal History: Reports: None Genitourinary History: Reports: STD Musculoskeletal History: Reports: Osteoarthritis Other Musculoskeletal History: arthritis of some kind Neurological History: Reports: Concussion, Head Trauma Psychiatric History: Reports: Addiction, Anxiety, Panic Attack Endocrine/Metabolic History: Reports: Obesity/BMI 30+ Hematologic History: Reports: None Immunologic History: Reports: None Oncologic (Cancer) History: Reports: None Dermatologic History: Reports: None - Infectious Disease History Infectious Disease History: Reports: Chicken Pox - Past Surgical History Head Surgeries/Procedures: Reports: None Musculoskeletal Surgical History: Reports: Arthroscopic Knee Social & Family History - Family History Family Medical History: No Pertinent Family History - Caffeine Use Caffeine Use: Reports: Coffee - Living Situation & Occupation Living situation: Reports: Single, Alone Occupation: Employed ED ROS GENERAL - Review of Systems Review Of Systems: Comprehensive ROS is negative, except as noted in HPI. ED EXAM GENERAL W FULL EYE - Physical Exam Exam: See Below Exam Limited By: No Limitations General Appearance: Alert, No Apparent Distress, Obese Eye Exam: Right Eye: Normal Inspection, Left Eye: Conjunctival Injection, Bilateral Eye: EOMI, PERRL Eyelids: Bilateral: Normal Appearance Conjunctiva & Sclera: Left: Discharge, Injected Cornea Exam: Bilateral: Normal Appearance Pupils: Normal Accommodation Pupillary Size: Bilateral: 3 mm Pupillary Reaction: Bilateral: Brisk Nose: Normal Inspection Throat/Mouth: Normal Inspection Head: Atraumatic, Normocephalic Neck: Normal Inspection Neurological: Alert, Oriented, No Motor/Sensory Deficits Psychiatric: Normal Mood Skin Exam: Warm, Dry, Intact, Normal Color, No Rash Course - Orders/Labs/Meds Meds: Medications Discontinued Medications Generic Name Dose Route Start Last Admin Trade Name Freq PRN Reason Stop Dose Admin Gentamicin Sulfate 1 ml 10/12/21 10:35 Gentamicin 0.3% Ophth Soln 5 Ml Bottle EYELF 10/12/21 10:36 ONETIME ONE Departure - Departure Time of Disposition: 10:35 Disposition: Home, Self-Care 01 Condition: Good Clinical Impression: Conjunctivitis Qualifiers: Conjunctivitis type: acute Acute conjunctivitis type: bacterial Laterality: left Qualified Code(s): H10.32 - Unspecified acute conjunctivitis, left eye - Discharge Information *PRESCRIPTION DRUG MONITORING PROGRAM REVIEWED*: Not Applicable *COPY OF PRESCRIPTION DRUG MONITORING REPORT IN PATIENT DEEPTI: Not Applicable Instructions: Bacterial Conjunctivitis, Adult, [id number] Forms: ED Department Discharge Additional Instructions: Gentamicin Ophthalmic Solution 0.3% One drop to left eye 4 times a day for five days. Follow up in clinic if not improving as expected.
[2021-10-12 10:39] VITALS: BP 188/103; PULSE 95
== END 2021-10-12 10:50 | disposition home or self-care (01) ==
LOC: DL.ED 09:47
DX: H10.32 Unspecified acute conjunctivitis, left eye (principal); E66.9 Obesity, unspecified; Z68.30 Body mass index [BMI] 30.0-30.9, adult; Z91.010 Allergy to peanuts
CPT/HCPCS: 99283; A9270-GY

== ENCOUNTER 2021-11-13 12:35 | Emergency (ER) | payer SELFPAY ==
[2021-11-13 13:48] VITALS: PULSE 113
[2021-11-13 14:24] LABS: CORONAVIRUS COVID-19 NAA NEGATIVE (NEGATIVE)
[2021-11-13] MEDS ORDERED: Ondansetron 4 MG Tab.DIS PO ONE (18:23)
[2021-11-13 18:42] VITALS: BP 211/150
--- NOTE | 2021-11-13 18:45 | EDM.PDOC ---
<Sydnee Brown - Last Filed: 11/13/21 18:49> ED HPI GENERAL MEDICAL PROBLEM - General Chief Complaint: Fever Stated Complaint: FEVER 102 Time Seen by Provider: 11/13/21 18:05 Source of Information: Reports: Patient, RN, RN Notes Reviewed History Limitations: Reports: No Limitations - History of Present Illness INITIAL COMMENTS - FREE TEXT/NARRATIVE: Anjel is a 36 y/o male who presents to the ED via personal vehicle with complaints of fever, cough, muscle aches, and nausea. The patient states his symptoms began two days ago and have progressively worsened in that time. Additionally, he notes headache, transient dizziness, vomiting, and diarrhea. He denies vision changes, sore throat, chest pain/pressure, palpitations, shortness of breath, dyspepsia, abdominal pain, hematemesis, dysuria, hematuria, hematochezia, or melena. He has taken transient doses of Naldo's cold and sinus with [id number] alleviation in symptoms. - Related Data Allergies Allergy/AdvReac Type Severity Reaction Status Date / Time peanut Allergy Anaphylactic Verified 11/13/21 13:52 Shock nuts Allergy Anaphylactic Uncoded 10/12/21 10:39 Shock Home Meds: Home Meds . [No Known Home Meds] 01/19/14 [History] Past Medical History - Past Health History Medical/Surgical History: Denies Medical/Surgical History HEENT History: Reports: Impaired Vision Other HEENT History: Throat swells from nuts. Cardiovascular History: Reports: Hypertension Respiratory History: Reports: None Gastrointestinal History: Reports: None Genitourinary History: Reports: STD Musculoskeletal History: Reports: Osteoarthritis Other Musculoskeletal History: arthritis of some kind Neurological History: Reports: Concussion, Head Trauma Psychiatric History: Reports: Addiction, Anxiety, Panic Attack Endocrine/Metabolic History: Reports: Obesity/BMI 30+ Hematologic History: Reports: None Immunologic History: Reports: None Oncologic (Cancer) History: Reports: None Dermatologic History: Reports: None - Infectious Disease History Infectious Disease History: Reports: Chicken Pox, Novel Coronavirus - Past Surgical History Head Surgeries/Procedures: Reports: None Musculoskeletal Surgical History: Reports: Arthroscopic Knee Other Musculoskeletal Surgeries/Procedures:: knee surgery Social & Family History - Family History Family Medical History: No Pertinent Family History - Tobacco Use Tobacco Use Status *Q: Current Every Day Tobacco User Years of Tobacco use: 10 Packs/Tins Daily: 0.5 - Caffeine Use Caffeine Use: Reports: Energy Drinks - Recreational Drug Use Recreational Drug Use: Yes Drug Use in Last 12 Months: No - Living Situation & Occupation Living situation: Reports: Single, Alone Occupation: Employed ED ROS GENERAL - Review of Systems Review Of Systems: Comprehensive ROS is negative, except as noted in HPI. ED EXAM, GENERAL - Physical Exam Exam: See Below Exam Limited By: No Limitations General Appearance: Alert, No Apparent Distress, Obese Eye Exam: Bilateral Eye: EOMI, Normal Inspection, PERRL (3mm) Ears: Normal External Exam, Hearing Grossly Normal Ear Exam: Bilateral Ear: Erythema Nose: Normal Inspection Throat/Mouth: Normal Inspection, Normal Oropharynx, Normal Voice, No Airway Compromise Head: Atraumatic, Normocephalic Neck: Normal Inspection, Supple, Non-Tender, Full Range of Motion. No: Lymphadenopathy (L), Lymphadenopathy (R) Respiratory/Chest: No Respiratory Distress, Lungs Clear, Normal Breath Sounds, No Accessory Muscle Use, Chest Non-Tender. No: Crackles, Rales, Rhonchi, Wheezing, Stridor Cardiovascular: Normal Peripheral Pulses, Regular Rate, Rhythm, No Gallop, No Murmur, No Rub, Tachycardia Peripheral Pulses: 2+: Radial (L), Radial (R) GI/Abdominal: Normal Bowel Sounds, Soft, Non-Tender, No Distention, No Abnormal Bruit, No Mass, Pelvis Stable (Male) Exam: Deferred Rectal (Males) Exam: Deferred Back Exam: Normal Inspection, Full Range of Motion Extremities: Normal Inspection, Normal Range of Motion, Non-Tender, No Pedal Edema, Normal Capillary Refill Neurological: Alert, Oriented, CN II-XII Intact, Normal Cognition, Normal Gait, No Motor/Sensory Deficits Psychiatric: Normal Affect, Normal Mood Skin Exam: Warm, Dry, Intact, Normal Color, No Rash. No: Cyanosis, Jaundice, Mottled, Pallor Lymphatic: No Adenopathy Course - Re-Assessments/Exams Free Text/Narrative Re-Assessment/Exam: 11/13/21 COVID/Influenza sent. Care of patient transferred to Renay Mcclain PA-C at 1900. Departure - Departure Disposition: Home, Self-Care 01 Condition: Fair Clinical Impression: Influenza A - Discharge Information *PRESCRIPTION DRUG MONITORING PROGRAM REVIEWED*: Not Applicable *COPY OF PRESCRIPTION DRUG MONITORING REPORT IN PATIENT DEEPTI: Not Applicable Instructions: Influenza, Adult Forms: ED Department Discharge Additional Instructions: Rx: Zofran 4mg OTD (#12) 1.) Drink small frequent sips of fluids to stay hydrated and avoid nausea. 2.) Eat small, snack-like meals to avoid nausea. Eat a bland diet, including applesauce, toast, cracker, etc... Avoid spicy, greasy, high-fat foods. 3.) You may take ibuprofen (Advil/Motrin) 400mg every six hours, as headaches, fever, and muscle aches persist. You may also take acetaminophen (Tylenol) 650-1000mg every six hours, as symptoms persists. You may stagger these medications so you are taking a dose of either every three hours. 4.) Do not return to work until you are 24 hours fever-free without medications. 5.) Continue to wear a mask and self-isolate as the flu is transmitted via droplets. Sepsis Event Note (ED) - Evaluation Sepsis Screening Result: No Definite Risk <Renay Mcclain - Last Filed: 11/13/21 19:12> Course - Vital Signs Last Recorded V/S: Last Vital Signs Temp 99.8 F 11/13/21 18:39 Pulse 113 H 11/13/21 18:39 Resp 18 11/13/21 18:39 BP 211/150 H 11/13/21 18:39 Pulse Ox 94 L 11/13/21 18:39 - Orders/Labs/Meds Labs: Laboratory Tests 11/13/21 11/13/21 11/13/21 Range/Units 13:25 18:35 18:35 WBC 8.1 (5.0-10.0) 10^3/uL RBC 5.92 (4.6-6.2) 10^6/uL Hgb 17.0 (14.0-18.0) g/dL Hct 50.4 (40.0-54.0) % MCV 85.1 (80-100) fL MCH 28.7 (27.0-34.0) pg MCHC 33.7 (33.0-35.0) g/dL Plt Count 151 (150-450) 10^3/uL Neut % (Auto) 62.4 (42.2-75.2) % Lymph % (Auto) 25.1 (20.5-50.1) % [place] % (Auto) 11.9 H (2-8) % Eos % (Auto) 0.4 L (1.0-3.0) % Baso % (Auto) 0.2 (0.0-1.0) % Sodium 140 (136-145) mmol/L Potassium 3.7 (3.5-5.1) mmol/L Chloride 101 (98-107) mmol/L Carbon Dioxide 27 (21-32) mmol/L Anion Gap 15.7 H (7-13) mEq/L BUN 12 (7-18) mg/dL Creatinine 1.22 (0.70-1.30) mg/dL Est Cr Clr Drug Dosing 79.77 mL/min Estimated GFR (MDRD) > 60 BUN/Creatinine Ratio 9.8 (No establ ref range) Glucose 99 (70-99) mg/dL Calcium 8.2 L (8.5-10.1) mg/dL Magnesium 2.4 (1.8-2.4) mg/dL Total Bilirubin 0.4 (0.2-1.0) mg/dL AST 63 H (15-37) U/L ALT 73 H (16-63) U/L Alkaline Phosphatase 86 (46-116) U/L Total Protein 7.9 (6.4-8.2) g/dL Albumin 4.0 (3.4-5.0) g/dL Globulin 3.9 Albumin/Globulin Ratio 1.0 Influenza Type A RNA Positive H (NEGATIVE) Influenza Type B RNA Negative (NEGATIVE) SARS-CoV-2 RNA (LAURY) Negative (NEGATIVE) Meds: Medications Discontinued Medications Generic Name Dose Route Start Last Admin Trade Name Freq PRN Reason Stop Dose Admin Ondansetron HCl 4 mg 11/13/21 18:23 11/13/21 18:39 Ondansetron 4 Mg Tab.Dis PO 11/13/21 18:24 4 mg ONETIME ONE Administration Departure - Departure Time of Disposition: 19:11 Sepsis Event Note (ED) - Focused Exam Vital Signs: Vital Signs Temp Pulse Resp BP Pulse Ox 11/13/21 18:39 99.8 F 113 H 18 211/150 H 94 L 11/13/21 13:46 98.8 F 113 H 16 179/120 H 96
[2021-11-13 18:57] LABS: ANION GAP 15.7 mEq/L (7-13); CHLORIDE,CL 101 mmol/L (98-107); SODIUM,NA 140 mmol/L (136-145)
== END 2021-11-13 19:28 | disposition home or self-care (01) ==
LOC: DL.ED 12:35
DX: J10.1 Influenza due to other identified influenza virus with other respiratory manifestations (principal); I10 Essential (primary) hypertension; E66.9 Obesity, unspecified; Z91.010 Allergy to peanuts; Z72.0 Tobacco use; Z20.822 Contact with and (suspected) exposure to COVID-19; Z68.43 Body mass index [BMI] 50.0-59.9, adult
CPT/HCPCS: 0240U; 36415; 80053; 83735; 85025; 99283; A9270

== ENCOUNTER 2022-01-15 15:50 | Emergency (ER) | payer SELFPAY ==
[2022-01-15 16:23] LABS: CHLORIDE,CL 104 mmol/L (98-107); SODIUM,NA 142 mmol/L (136-145)
[2022-01-15] MEDS ORDERED: hydrALAZINE 20 MG/ML SDV IVPUSH ONE (16:27)
[2022-01-15 16:41] LABS: AMPHETAMINES,URINE NEGATIVE (NEGATIVE); BARBITURATES,URINE NEGATIVE (NEGATIVE); BENZODIAZEPINE,URINE NEGATIVE (NEGATIVE); MDMA (ECSTASY), URINE NEGATIVE (NEGATIVE); METHADONE,URINE NEGATIVE (NEGATIVE); METHAMPHETAMINES,URINE NEGATIVE (NEGATIVE); OPIATES,URINE NEGATIVE (NEGATIVE); OXYCODONE,URINE NEGATIVE (NEGATIVE); PHENCYCLIDINE,URINE NEGATIVE (NEGATIVE); TCA,URINE NEGATIVE (NEGATIVE)
[2022-01-15 16:48] LABS: CORONAVIRUS COVID-19 NAA POSITIVE (NEGATIVE)
[2022-01-15] MEDS ORDERED: Metoprolol Tartrate 25 MG Tab PO ONE (17:23)
[2022-01-15 17:49] VITALS: BP 159/79; PULSE 104
== END 2022-01-15 17:49 | disposition home or self-care (01) ==
LOC: DL.ED 15:50
DX: U07.1 COVID-19 (principal); I10 Essential (primary) hypertension; E66.9 Obesity, unspecified; Z68.44 Body mass index [BMI] 60.0-69.9, adult; Z72.0 Tobacco use; Z91.010 Allergy to peanuts; Z91.018 Allergy to other foods; Z20.822 Contact with and (suspected) exposure to COVID-19
CPT/HCPCS: 0240U; 36415; 80053; 80305; 81001; 85025; 93005; 96374; 99284; A9270; J0360

== ENCOUNTER 2022-04-17 18:11 | Emergency (ER) | payer SELFPAY ==
[2022-04-17] MEDS ORDERED: Aspirin 81 MG Tab.Chew PO ONE (18:36)
[2022-04-17] MEDS ORDERED: Aspirin 81 MG Tab.Chew ONE (18:37)
[2022-04-17 18:49] VITALS: BP 133/77; PULSE 77
[2022-04-17 18:55] LABS: ANION GAP 11.4 mEq/L (7-13); CHLORIDE,CL 101 mmol/L (98-107); SODIUM,NA 139 mmol/L (136-145)
== END 2022-04-17 19:50 | disposition left against medical advice (07) ==
LOC: DL.ED 18:11
DX: R07.2 Precordial pain (principal); I10 Essential (primary) hypertension; E66.9 Obesity, unspecified; Z68.43 Body mass index [BMI] 50.0-59.9, adult; Z91.010 Allergy to peanuts; Z79.899 Other long term (current) drug therapy; Z86.16 Personal history of COVID-19
CPT/HCPCS: 36415; 71045; 80053; 83605; 84484; 85025; 85379; 85610; 87040; 93005; 93010; 99283; 99285-25; A9270-GY

== ENCOUNTER 2022-06-09 13:21 | Emergency (ER) | payer SELFPAY ==
[2022-06-09] MEDS ORDERED: Ketorolac 10 MG Tab PO ONE (13:22)
[2022-06-09 14:05] VITALS: BP 133/79; PULSE 80
[2022-06-09] MEDS ORDERED: Ibuprofen 600 MG Tab PO ONE (15:00)
[2022-06-09] MEDS ORDERED: Ketorolac 10 MG Tab ONE (16:05)
== END 2022-06-09 16:15 | disposition home or self-care (01) ==
LOC: DL.ED 13:21
DX: M25.511 Pain in right shoulder (principal); I10 Essential (primary) hypertension; F17.210 Nicotine dependence, cigarettes, uncomplicated; E66.9 Obesity, unspecified; W10.8XXA Fall (on) (from) other stairs and steps, initial encounter; Z68.43 Body mass index [BMI] 50.0-59.9, adult; Z91.018 Allergy to other foods; Z91.010 Allergy to peanuts; Z79.899 Other long term (current) drug therapy; Z86.16 Personal history of COVID-19
CPT/HCPCS: 73030; 99283; 99284; A9270

== ENCOUNTER 2022-08-06 13:09 | Emergency (ER) | payer SELFPAY ==
[2022-08-06 13:41] VITALS: BP 118/53; PULSE 80
[2022-08-06] MEDS ORDERED: Gentamicin 0.3% Ophth Soln 5 ML Bottle EYELF ONE (13:58)
== END 2022-08-06 14:08 | disposition home or self-care (01) ==
LOC: DL.ED 13:09
DX: H10.022 Other mucopurulent conjunctivitis, left eye (principal); I10 Essential (primary) hypertension; E66.9 Obesity, unspecified; Z68.43 Body mass index [BMI] 50.0-59.9, adult; Z91.010 Allergy to peanuts; Z91.018 Allergy to other foods; Z79.899 Other long term (current) drug therapy; Z86.16 Personal history of COVID-19
CPT/HCPCS: 99282; A9270-GY

== ENCOUNTER 2023-02-15 11:52 | Emergency (ER) | payer SELFPAY ==
[2023-02-15] MEDS ORDERED: methylPREDNISolone Sodium Succinate 125 MG/2 ML SDV IVPUSH ONE (12:04)
[2023-02-15 12:29] VITALS: BP 142/87; PULSE 71
== END 2023-02-15 13:06 | disposition home or self-care (01) ==
LOC: DL.ED 11:52
DX: T78.1XXA Other adverse food reactions, not elsewhere classified, initial encounter (principal); I10 Essential (primary) hypertension; E66.9 Obesity, unspecified; Z68.43 Body mass index [BMI] 50.0-59.9, adult; Z72.0 Tobacco use; Z86.16 Personal history of COVID-19; Z91.010 Allergy to peanuts; Z79.899 Other long term (current) drug therapy
CPT/HCPCS: 96374; 99283; 99283-25; J2930

== ENCOUNTER 2023-06-21 09:03 | Emergency (ER) | payer SELFPAY ==
[2023-06-21 09:40] VITALS: PULSE 71
[2023-06-21 10:58] VITALS: BP 140/85
== END 2023-06-21 10:48 | disposition home or self-care (01) ==
LOC: DL.ED 09:03
DX: M25.562 Pain in left knee (principal); I10 Essential (primary) hypertension; Z86.16 Personal history of COVID-19; Z91.010 Allergy to peanuts; Z79.899 Other long term (current) drug therapy; X50.1XXA Overexertion from prolonged static or awkward postures, initial encounter
CPT/HCPCS: 73562-LT; 99283

== ENCOUNTER 2024-03-11 13:42 | Emergency (ER) | payer SELFPAY ==
[2024-03-11] MEDS ORDERED: Nitroglycerin 0.4 MG Tab.SL SL PRN (13:56)
[2024-03-11 14:05] LABS: BASOPHILS PERCENT AUTO 0.3 % (0.0-1.0); EOSINOPHILS PERCENT AUTO 0.9 % (1.0-3.0); HEMATOCRIT 47.4 % (40.0-54.0); HEMOGLOBIN 16.5 g/dL (14.0-18.0); LYMPHOCYTES PERCENT AUTO 27.4 % (20.5-50.1); MEAN CORPUSCULAR HGB CONC 34.8 g/dL (33.0-35.0); MEAN CORPUSCULAR VOLUME 83.5 fL (80-100); MONOCYTES PERCENT AUTO 8.9 % (2-8); NEUTROPHILS PERCENT AUTO 62.5 % (42.2-75.2); PLATELET COUNT,PLT 249 10^3/uL (150-450); RED BLOOD CELL COUNT 5.68 10^6/uL (4.6-6.2); WHITE BLOOD CELL COUNT,WBC 12.5 10^3/uL (5.0-10.0)
[2024-03-11] MEDS: Aspirin 81 MG Tab.Chew PO ONE (14:23)
[2024-03-11] MEDS: Sodium Chloride 0.9% 10 ML Syringe FLUSH PRN (14:23)
[2024-03-11 14:27] LABS: A/G RATIO 1.2; ALBUMIN 4.2 g/dL (3.4-5.0); ANION GAP 17.1 mEq/L (7-13); BILIRUBIN TOTAL 0.5 mg/dL (0.2-1.0); BUN/CREATININE RATIO 12.4 (No establ ref range); CALCIUM 9.9 mg/dL (8.5-10.1); CREATININE 1.13 mg/dL (0.70-1.30); EST CRCL DRUG DOSING (CG) 78.61 mL/min; POTASSIUM,K 3.1 mmol/L (3.5-5.1); PROTEIN TOTAL,TP 7.7 g/dL (6.4-8.2)
[2024-03-11] MEDS: Potassium Chloride 10 MEQ Tab.ER PO ONE (14:51)
[2024-03-11] MEDS: LORazepam 2 MG/ML SDV IVPUSH ONE (14:51)
[2024-03-11 14:55] LABS: CORONAVIRUS COVID-19 NAA POSITIVE (NEGATIVE); INFLUENZA A NAA NEGATIVE (NEGATIVE); INFLUENZA B NAA NEGATIVE (NEGATIVE); RESPIRATORY SYNCYTIAL VIR NAA NEGATIVE (NEGATIVE)
[2024-03-11 15:29] VITALS: BP 116/68; PULSE 111
== END 2024-03-11 16:50 | disposition home or self-care (01) ==
LOC: DL.ED 13:42
DX: R07.89 Other chest pain (principal); I10 Essential (primary) hypertension; E66.9 Obesity, unspecified; Z91.018 Allergy to other foods; Z91.010 Allergy to peanuts; Z79.899 Other long term (current) drug therapy; Z86.16 Personal history of COVID-19; Z68.43 Body mass index [BMI] 50.0-59.9, adult
CPT/HCPCS: 0241U; 36415; 71045; 80053; 83690; 84484; 85025; 85379; 93005; 93010; 96374; 99284; 99285; A9270; J2060; J3490

== ENCOUNTER 2025-03-03 10:30 | Emergency (ER) | payer BC ==
[2025-03-03] MEDS ORDERED: Sodium Chloride 0.9% 10 ML Syringe FLUSH PRN (10:40)
[2025-03-03 10:55] LABS: BASOPHILS PERCENT AUTO 0.3 % (0.0-1.0); HEMATOCRIT 46.1 % (40.0-54.0); HEMOGLOBIN 15.8 g/dL (14.0-18.0); LYMPHOCYTES PERCENT AUTO 28.9 % (20.5-50.1); MEAN CORPUSCULAR HEMOGLOBIN 29.7 pg (27.0-34.0); MEAN CORPUSCULAR HGB CONC 34.3 g/dL (33.0-35.0); MEAN CORPUSCULAR VOLUME 86.7 fL (80-100); MONOCYTES PERCENT AUTO 7.6 % (2-8); NEUTROPHILS PERCENT AUTO 61.2 % (42.2-75.2); PLATELET COUNT,PLT 199 10^3/uL (150-450); RED BLOOD CELL COUNT 5.32 10^6/uL (4.6-6.2); WHITE BLOOD CELL COUNT,WBC 11.5 10^3/uL (5.0-10.0)
[2025-03-03] MEDS: Sodium Chloride 0.9% 1,000 ML IV ONE (11:09)
[2025-03-03 11:19] LABS: A/G RATIO 1.3; ALANINE AMINOTRANSFERASE,ALT 80 U/L (16-63); ALKALINE PHOSPHATASE 57 U/L (46-116); ANION GAP 8.5 mEq/L (7-13); ASPARTATE AMNIOTRANSFERASE,AST 22 U/L (15-37); BILIRUBIN TOTAL 0.4 mg/dL (0.2-1.0); BLOOD UREA NITROGEN,BUN 22 mg/dL (7-18); BUN/CREATININE RATIO 19.3 (No establ ref range); C-REACTIVE PROTEIN < 0.50 ng/dL (<=0.50); CALCIUM 9.7 mg/dL (8.5-10.1); CARBON DIOXIDE,CO2 32 mmol/L (21-32); CHLORIDE,CL 106 mmol/L (98-107); CREATININE 1.14 mg/dL (0.70-1.30); EST CRCL DRUG DOSING (CG) 82.95 mL/min; ESTIMATED GFR 85 mL/min (>=60); GLUCOSE RANDOM 100 mg/dL (70-99); POTASSIUM,K 3.5 mmol/L (3.5-5.1); PROTEIN TOTAL,TP 7.2 g/dL (6.4-8.2); SODIUM,NA 143 mmol/L (136-145)
[2025-03-03 11:21] VITALS: BP 108/67; PULSE 75
== END 2025-03-03 11:39 | disposition home or self-care (01) ==
LOC: DL.ED 10:30
DX: T44.6X5A Adverse effect of alpha-adrenoreceptor antagonists, initial encounter (principal); I10 Essential (primary) hypertension; E11.9 Type 2 diabetes mellitus without complications; E66.9 Obesity, unspecified; Z91.010 Allergy to peanuts; Z79.899 Other long term (current) drug therapy; Z86.16 Personal history of COVID-19; Z68.42 Body mass index [BMI] 45.0-49.9, adult
CPT/HCPCS: 36415; 80053; 83735; 84484; 85025; 86140; 93005; 99285; J7030; 93010; 99283

== ENCOUNTER 2025-05-14 18:06 | Emergency (ER) | payer BC ==
[2025-05-14] MEDS ORDERED: Sodium Chloride 0.9% 10 ML Syringe FLUSH PRN (18:16)
[2025-05-14] MEDS: diphenhydrAMINE 50 MG/ML SDV IVPUSH ONE (18:35)
[2025-05-14] MEDS: Sodium Chloride 0.9% 1,000 ML IV ONE (18:35)
[2025-05-14] MEDS: methylPREDNISolone Sodium Succinate 125 MG/2 ML SDV IVPUSH ONE (18:35)
[2025-05-14] MEDS: Famotidine 20 MG/2 ML SDV IVPUSH ONE (18:36)
[2025-05-14 19:34] VITALS: BP 116/70; PULSE 92
== END 2025-05-14 19:38 | disposition home or self-care (01) ==
LOC: DL.ED 18:06
DX: L50.0 Allergic urticaria (principal); I10 Essential (primary) hypertension; E66.9 Obesity, unspecified; Z91.018 Allergy to other foods; Z91.010 Allergy to peanuts; Z79.899 Other long term (current) drug therapy; Z86.16 Personal history of COVID-19
CPT/HCPCS: 96374; 96375; 99283-25; 99284; J1200; J2919; J7030

== ENCOUNTER 2025-05-23 16:02 | Emergency (ER) | payer BC ==
[2025-05-23 16:22] VITALS: BP 129/64; PULSE 93
[2025-05-23] MEDS: Ketorolac 30 MG/ML SDV IM ONE (16:30)
== END 2025-05-23 17:05 | disposition home or self-care (01) ==
LOC: DL.ED 16:02
DX: M25.562 Pain in left knee (principal); I10 Essential (primary) hypertension; Z86.16 Personal history of COVID-19; Z91.010 Allergy to peanuts; Z91.018 Allergy to other foods; Z79.899 Other long term (current) drug therapy
CPT/HCPCS: 73562; 96372; 99283; J1885